=== PATIENT | female | born 1965 | race Caucasian/White ===

== ENCOUNTER 2019-03-26 10:48 | Outpatient (CLI) | payer OTHER, SELFPAY ==
[2019-03-26 11:33] LABS: Alanine Aminotransferase 30 U/L (4-35); Albumin Level 4.6 g/dL (3.5-5.1); Alkaline Phosphatase 91 U/L (38-126); Aspartate Amino Transferase 38 U/L (14-36); Bilirubin,Total 0.6 mg/dL (0.2-1.3); Blood Urea Nitrogen 12 mg/dL (7-17); Calcium 9.6 mg/dL (8.4-10.2); Carbon Dioxide 34 mmol/L (22-30); Chloride 92 mmol/L (98-107); Cholesterol 235 mg/dL (0-200); Estimated Glomerular Filt Rate > 60; Glucose 96 mg/dL (65-105); HDL Direct 74 mg/dL; Potassium 3.4 mmol/L (3.4-5.0); Sodium 135 mmol/L (137-145); Triglycerides 85 mg/dL (<150)
[2019-03-26 11:44] LABS: LDL Cholesterol Direct 151 mg/dL
== END 2019-03-26 10:49 | disposition home or self-care (01) ==
PROVIDERS: PCP Family Medicine; Visit Provider Family Medicine
DX: E03.9 Hypothyroidism, unspecified (principal); R94.6 Abnormal results of thyroid function studies; E78.5 Hyperlipidemia, unspecified
CPT/HCPCS: 36415; 80053; 80061; 84443

== ENCOUNTER 2019-05-31 16:34 | Emergency (ER) | payer OTHER, SELFPAY ==
--- NOTE | ~2019-05-31 | CT_ITS ---
EXAMINATION: CT abdomen pelvis wo con EXAM DATE: 05/31/2019 17:14 INDICATION: Left lower quadrant, left flank pain. TECHNIQUE: Spiral CT of the abdomen and pelvis was performed without contrast. Axial, coronal and sag ittal images were reviewed. The dose-length product (DLP) for this examination was 320.28 mGy-cm. T he exposure was tailored according to patient size (auto mA exposure control), and iterative reconstr uction (ASIR) was used as additional dose reduction technique. There is no prior study for compariso n. FINDINGS: There is no nephrolithiasis or hydronephrosis. The uterus is not identified and has likel y been surgically resected. The bladder is unremarkable. The liver, spleen, adrenal glands and panc reas are unremarkable. Gallbladder is unremarkable. No biliary obstruction. There is no retroperit lozano or pelvic lymphadenopathy. The appendix is normal. The stomach and small bowel are unremarkable. There is expected amount of c olonic stool. No free intraperitoneal gas. The heart is normal in size. There are no pericardial or pleural effusions. The lung bases are unremarkable. There are no osteoblastic or osteolytic les ions identified. IMPRESSION: 1. No nephrolithiasis, hydronephrosis or acute intra-abdominal findings. Reviewed, dictated and finalized at location A.
--- NOTE | ~2019-05-31 | CT_ITS ---
EXAMINATION: CT abdomen pelvis w con EXAM DATE: 05/31/2019 19:16 INDICATION: Severe left lower quadrant pain. TECHNIQUE: Spiral CT of the abdomen and pelvis was performed following intravenous injection of 100 m L Omnipaque 350. Axial, coronal and sagittal images were reviewed. The dose-length product (DLP) fo r this examination was 326.24 mGy-cm. The exposure was tailored according to patient size (auto mA e xposure control), and iterative reconstruction (ASIR) was used as additional dose reduction technique . Comparison is made to prior examination from 05/31/2019. FINDINGS: The liver, spleen, adrenal glands and pancreas are unremarkable. Gallbladder is unremarkab le. No biliary obstruction. Portal and splenic veins are patent. Kidneys enhance symmetrically. T here is no hydronephrosis. The uterus is not identified and has likely been surgically resected. T he bladder is unremarkable. There is no retroperitoneal or pelvic lymphadenopathy. There is mild s cattered arteriosclerotic disease. The appendix is normal. The stomach and small bowel are unremarkable. There is expected amount of c olonic stool. No free intraperitoneal gas. The heart is normal in size. There are no pericardial or pleural effusions. The lung bases are unremarkable. There are no osteoblastic or osteolytic les ions identified. IMPRESSION: 1. No acute intra-abdominal findings. Reviewed, dictated and finalized at location A.
--- NOTE | 2019-05-31 16:44 | ED.GENADULT ---
HPI - General Adult General Chief complaint: Abdominal Pain Stated complaint: abd pain Time Seen by Provider: 05/31/19 16:39 Source: patient Mode of arrival: ambulatory Limitations: no limitations History of Present Illness HPI narrative: Patient is a 53-year-old female with a history of anxiety and depression who presents for evaluation of left flank pain. Pain began approximately 2 hours ago while the patient was on a walk. She denies any fall, trauma or recent injury. She states that she experienced left flank pain that radiated to the front of her left lower abdomen. Described as sharp, shooting, severe in nature. Associated with nausea, no emesis. She denies any recent fever, chills, dysuria or hematuria. No history of nephrolithiasis. No ripping or tearing sensation to the pain. No chest pain, shortness of breath, recent cough or cold symptoms. Patient took 4 ibuprofen without improvement in her pain. Related Data Home Medications Medication Instructions Recorded Confirmed atorvastatin 10 mg tablet 10 mg PO DAILY 02/24/19 cetirizine 10 mg tablet 10 mg PO DAILY 02/24/19 indapamide 2.5 mg tablet 2.5 mg PO QAM tablet 02/24/19 magnesium oxide,aspartate,citr 400 mg PO cap 02/24/19 quetiapine 25 mg tablet 50 mg PO DAILY tablet 03/24/19 Allergies Allergy/AdvReac Type Severity Reaction Status Date / Time Sulfa (Sulfonamide Allergy Unknown RASH Verified 03/24/19 16:48 Antibiotics) Review of Systems Review of Systems: Narrative: CONSTITUTIONAL: Denies fever, chills, or sweats. ENT: Denies rhinorrhea, congestion, sore throat, or otalgia. CARDIOVASCULAR: Denies chest pain, palpitations, or edema. RESPIRATORY: Denies cough or dyspnea. GASTROINTESTINAL: Reports left lower quadrant abdominal pain, nausea, denies vomiting or diarrhea GENITOURINARY: Denies dysuria or hematuria. SKIN: Denies rash or itching. MUSCULOSKELETAL: Reports left flank pain, denies extremity pain NEUROLOGIC: Denies headache, numbness, or weakness. [facility] Past Medical History Medical History Essential hypertension Hypothyroidism determined by thyroid function test Migraines Mixed hyperlipidemia PTSD (post-traumatic stress disorder) Surgical History Surgical History History of bilateral breast reduction surgery History of tonsillectomy Status post hysteroscopic surgical removal of uterine septum Family History Family History Sibling Family history of blood dyscrasia Father Family history of pulmonary embolism Mother Family history of pulmonary embolism Social History Social History Smoking status: Never smoker Second hand tobacco smoke exposure: No Alcohol intake: current Substance use: never Substance use type: does not use Gender identity (if verbalized by the patient): Female Exam Narrative: Exam Narrative: GENERAL: Awake, alert, appears uncomfortable HEAD: Normocephalic, atraumatic. EYES: PERRLA and EOMI. ENT: Nares clear, no rhinorrhea or epistaxis. Mucous membranes moist. NECK: Supple. CHEST: No respiratory distress, breathing even and non labored HEART: Regular rate, sinus rhythm ABDOMEN:Non distended, right lower quadrant tenderness, mild left lower quadrant tenderness, guarding present, mild left flank tenderness EXTREMITIES: Normal range of motion. No edema. SKIN: Warm, dry, no rash. No vesicular rash or bruising. NEURO:No focal deficits. Alert and oriented x3 Course Vital Signs Vital signs: Vital Signs Temperature 36.7 C 05/31/19 17:12 Pulse Rate 72 05/31/19 17:12 Respiratory Rate 26 H 05/31/19 17:12 Blood Pressure 155/97 H 05/31/19 17:12 Pulse Oximetry 96 05/31/19 17:12 Temperature 36.7 C 05/31/19 17:12 Pulse Rate 65 05/31/19 20:06 Respiratory Rate
[2019-05-31] MEDS: SODIUM CHLORIDE 0.9% IV 1,000 ML 999 ML IV CONT (16:56)
[2019-05-31] MEDS: ONDANSETRON INJ 4 MG/2 ML VIAL IV PUSH (16:57)
[2019-05-31] MEDS: MORPHINE SULFATE 4 MG/ML INJ IV PUSH ×2 (16:57→19:02)
[2019-05-31 17:12] VITALS: BP 155/97; PULSE 72; RESP 26; TEMP 36.7; O2SAT 96
[2019-05-31 17:59] LABS: Basophils Percent Auto 0.4 % (0.2-1.2); Eosinophils Absolute Auto 0.1 K/mm3 (0-0.3); Eosinophils Percent Auto 2.2 % (0-4.4); Hematocrit 43.1 % (37.0-47.0); Hemoglobin 15.1 g/dL (12.0-15.0); Immature Granulocyte Absolute 0.04 K/mm3 (0.00-0.031); Immature Granulocyte Percent A 0.8 % (0-0.5); Lymphocytes Absolute Auto 0.77 K/mm3 (0.9-3.2); Lymphocytes Percent Auto 15.7 % (18.3-44.2); Mean Corpuscular Hemoglobin 28.8 pg (26-34); Mean Corpuscular Volume 82.3 fl (80-100); Mean Platelet Volume 9.9 fl (7.4-10.4); Monocytes Absolute Auto 0.4 K/mm3 (0.1-0.6); Monocytes Percent Auto 7.4 % (2.6-8.5); Neutrophils Absolute Auto 3.6 K/mm3 (1.3-6.7); Neutrophils Percent Auto 73.5 % (45.5-73.1); Platelet Count Result 152 k/mm3 (150-375); Red Blood Count 5.24 M/mm3 (4.2-5.4); Red Cell Distribution Width 12.2 % (11.5-14.5); White Blood Count 4.9 K/mm3 (4.5-10.0)
[2019-05-31 18:11] LABS: Potassium 3.5 mmol/L (3.4-5.0)
[2019-05-31 18:15] LABS: Albumin Level 4.6 g/dL (3.5-5.1)
[2019-05-31 18:16] LABS: Alanine Aminotransferase 24 U/L (4-35); Alkaline Phosphatase 111 U/L (38-126); Aspartate Amino Transferase 36 U/L (14-36); Bilirubin,Total 0.7 mg/dL (0.2-1.3); Blood Urea Nitrogen 14 mg/dL (7-17); Calcium 9.3 mg/dL (8.4-10.2); Carbon Dioxide 28 mmol/L (22-30); Chloride 99 mmol/L (98-107); Estimated CRCL calculation 80 ml/min; Estimated Glomerular Filt Rate > 60; Glucose 104 mg/dL (65-105); Sodium 134 mmol/L (137-145)
[2019-05-31 18:44] VITALS: BP 142/81; PULSE 64; RESP 8; O2SAT 100
[2019-05-31 19:18] LABS: Add Urine Microscopic? YES; Appearance Urine Clear (Clear); Bacteria Urine Trace /hpf; Bilirubin Urine Negative (Negative); Blood Urine Negative (Negative); Color Urine Yellow (Yellow); Glucose Urine UA Negative (Negative); Ketones Urine Trace mg/dL (Negative); Leukocyte Esterase Ur 1+ LEU/UL (Negative); Mucus Urine Rare /lpf; Nitrate Urine Negative (Negative); Protein Urine Negative (Negative); RBC Urine 0-2 /hpf (0-2); Specific Grav Ur 1.016 (1.001-1.035); Squamous Epithelial Cell Urine Rare /hpf (Few); Urobilinogen Urine Negative mg/dL (<2.0)
--- NOTE | 2019-05-31 19:21 | PC.NURSE ---
Assumed care of pt at this time. report from JOHNATHON Li
[2019-05-31 19:25] VITALS: BP 142/83; PULSE 69; RESP 12; O2SAT 95
[2019-05-31 20:06] VITALS: BP 135/73; PULSE 65; RESP 19; O2SAT 97
--- NOTE | 2019-05-31 20:07 | PC.NURSE ---
PT requesting pain medication EDP notified
[2019-05-31 20:30] VITALS: BP 125/93; PULSE 60; RESP 23; O2SAT 99
== END 2019-05-31 20:30 | disposition home or self-care (01) ==
PROVIDERS: Emergency Provider Emergency Medicine; PCP Family Medicine
DX: R10.32 Left lower quadrant pain (principal); F41.9 Anxiety disorder, unspecified; F32.9 Major depressive disorder, single episode, unspecified; I10 Essential (primary) hypertension; E03.9 Hypothyroidism, unspecified; E78.2 Mixed hyperlipidemia; F43.10 Post-traumatic stress disorder, unspecified
CPT/HCPCS: 36415; 74176; 74177; 74178; 80053; 81001; 85025; 96361; 96365; 96375; 96376; 99284; J0131; J2270; J2405; J3010; J7030; Q9967

== ENCOUNTER 2019-08-30 14:09 | Outpatient (CLI) | payer OTHER, SELFPAY ==
[2019-08-30 15:17] LABS: Thyroid Stimulating Hormone 0.841 uIU/mL (0.465-4.680)
[2019-08-30 15:59] LABS: Free T4 Free Thyroxine 1.07 ng/mL (0.78-2.19)
[2019-09-03 14:05] LABS: Triiodothyronine T3 Free 3.3 pg/mL (2.3-4.2)
== END 2019-08-30 14:10 | disposition home or self-care (01) ==
PROVIDERS: PCP Family Medicine; Visit Provider Family Medicine
DX: E03.9 Hypothyroidism, unspecified (principal); R94.6 Abnormal results of thyroid function studies
CPT/HCPCS: 36415; 84439; 84443; 84481

== ENCOUNTER → 2019-10-03 14:18 | Outpatient (CLI) | payer OTHER, SELFPAY ==
--- NOTE | ~2019-10-03 | US_ITS ---
US breast RT limited DATE: 10/03/2019 14:29 INDICATION: Six-month follow-up of probably benign mixed cystic and solid subcutaneous approximately 5 x 7.4 mm mass at 6:00 TECHNIQUE: Targeted real-time and color flow imaging at 6:00 4 cm from nipple COMPARISON: 03/01/2019 right breast ultrasound targeted examination FINDINGS: Stable up to approximately 7.3 mm parallel circumscribed mass at 6 5 4 cm from nipple. Ther e is no significant change since 03/01/2019 no internal vascularity. IMPRESSION: BI-RADS Category 2: Benign Recommendation: Routine mammographic screening Reviewed, dictated and finalized at Location A. Reviewed, dictated and finalized at location A.
== END ==
PROVIDERS: PCP Family Medicine; Visit Provider Family Medicine
DX: R92.8 Other abnormal and inconclusive findings on diagnostic imaging of breast (principal)
CPT/HCPCS: 76642

== ENCOUNTER 2020-05-22 12:47 | Outpatient (CLI) | payer OTHER, SELFPAY ==
[2020-05-22 14:25] LABS: Free T4 Free Thyroxine 0.86 ng/mL (0.78-2.19)
[2020-05-25 12:51] LABS: Triiodothyronine T3 Free 3.1 pg/mL (2.3-4.2)
== END 2020-05-22 12:48 | disposition home or self-care (01) ==
LOC: ANHASCLAB 12:50 → ANHLAB 12:51
PROVIDERS: PCP Physician Assistant; Visit Provider Physician Assistant
DX: E03.9 Hypothyroidism, unspecified (principal); R94.6 Abnormal results of thyroid function studies
CPT/HCPCS: 36415; 84439; 84443; 84481

== ENCOUNTER 2020-05-24 10:58 | Outpatient (CLI) | payer OTHER, SELFPAY | END 2020-05-24 10:59 | disposition home or self-care (01) | LOC: ANHCOVIDVC 10:58 | PROVIDERS: PCP Physician Assistant | DX: Z23 Encounter for immunization (principal) | CPT/HCPCS: 0001A; 91300 ==

== ENCOUNTER → 2020-05-29 16:10 | Outpatient (CLI) | payer OTHER, SELFPAY ==
--- NOTE | ~2020-05-29 | MM_ITS ---
EXAMINATION: MM screening [facility] BI w олег HISTORY: Screening TECHNIQUE: Craniocaudal and mediolateral oblique 3-D tomosynthesis images were obtained and synthetic 2-D images were generated. CAD analysis was submitted and interpreted. COMPARISON: Comparison to multiple prior studies sequentially, with oldest reviewed study dated 01/16. BREAST PARENCHYMAL COMPOSITION: There are scattered areas of fibroglandular density. FINDINGS: There are changes from prior breast reduction surgery. There is tissue marker in the right breast consistent with previous benign biopsy. There is no evidence of suspicious mass, calcification , or architectural distortion to suggest malignancy in either breast. There has been no suspicious in terval change. IMPRESSION: 1. No mammographic evidence of malignancy. 2. Recommend routine screening mammography in one year. BI-RADS Category 2: Benign finding(s). Reviewed, dictated and finalized at location A.
== END ==
PROVIDERS: Visit Provider Obstetrics & Gynecology
DX: Z12.31 Encounter for screening mammogram for malignant neoplasm of breast (principal)
CPT/HCPCS: 77063; 77067

== ENCOUNTER 2020-06-14 11:01 | Outpatient (CLI) | payer OTHER, SELFPAY | END 2020-06-14 11:02 | disposition home or self-care (01) | LOC: ANHCOVIDVC 11:02 | PROVIDERS: PCP Physician Assistant | DX: Z23 Encounter for immunization (principal) | CPT/HCPCS: 0002A; 91300 ==

== ENCOUNTER 2020-08-23 10:40 | Outpatient (CLI) | payer OTHER, SELFPAY ==
[2020-08-23 11:32] LABS: Alanine Aminotransferase 27 U/L (4-35); Albumin Level 4.8 g/dL (3.5-5.1); Alkaline Phosphatase 80 U/L (38-126); Anion Gap 12 mmol/L (8-16); Aspartate Amino Transferase 31 U/L (14-36); Blood Urea Nitrogen 13 mg/dL (7-17); Calcium 10.4 mg/dL (8.4-10.2); Carbon Dioxide 24 mmol/L (22-30); Chloride 103 mmol/L (98-107); Cholesterol 214 mg/dL (0-200); Estimated Glomerular Filt Rate > 60; Glucose 103 mg/dL (65-105); HDL Direct 48 mg/dL; Potassium 3.7 mmol/L (3.4-5.0); Sodium 139 mmol/L (137-145); Triglycerides 95 mg/dL (<150)
[2020-08-23 11:43] LABS: LDL Cholesterol Direct 115 mg/dL
[2020-08-23 12:02] LABS: Thyroid Stimulating Hormone 0.227 uIU/mL (0.465-4.680)
== END 2020-08-23 10:41 | disposition home or self-care (01) ==
LOC: ANHLAB 10:43
PROVIDERS: PCP Family Medicine; Visit Provider Physician Assistant
DX: E03.9 Hypothyroidism, unspecified (principal); E78.5 Hyperlipidemia, unspecified; I10 Essential (primary) hypertension
CPT/HCPCS: 36415; 80053; 80061; 84439; 84443

== ENCOUNTER 2020-11-23 15:22 | Outpatient (CLI) | payer OTHER, SELFPAY ==
--- NOTE | ~2020-11-23 | US_ITS ---
EXAMINATION: US pelvic complete w TV DATE: 11/23/2020 15:57 INDICATION: Left pelvic pain. TECHNIQUE: Multiple transabdominal and transvaginal sonographic images of the pelvis were obtained. COMPARISON: CT abdomen and pelvis 05/31/2019 FINDINGS: TRANSABDOMINAL ULTRASOUND: The uterus is absent. There is no free fluid in the pelvis. TRANSVAGINAL ULTRASOUND: The right ovary is not visualized. The left ovary measures 1.7 x 0.9 x 1.0 cm. There is normal vascul ar flow in left ovary. IMPRESSION: 1. Normal left ovary. Right ovary not visualized. 2. Uterus absent. Reviewed, dictated and finalized at location A.
== END 2020-11-23 15:23 | disposition home or self-care (01) ==
LOC: ANHIMG 15:26
PROVIDERS: PCP Family Medicine; Visit Provider Obstetrics & Gynecology
DX: R10.2 Pelvic and perineal pain (principal)
CPT/HCPCS: 76830; 76856

== ENCOUNTER 2020-12-18 12:11 | Outpatient (CLI) | payer OTHER, SELFPAY ==
[2020-12-18 13:30] LABS: Free T4 Free Thyroxine 1.26 ng/mL (0.78-2.19)
== END 2020-12-18 12:12 | disposition home or self-care (01) ==
LOC: ANHLAB 12:15
PROVIDERS: PCP Family Medicine; Visit Provider Physician Assistant
DX: E03.9 Hypothyroidism, unspecified (principal)
CPT/HCPCS: 36415; 84439; 84443

== ENCOUNTER 2021-02-28 10:28 | Outpatient (CLI) | payer OTHER, SELFPAY ==
[2021-02-28 11:09] LABS: Alanine Aminotransferase 31 U/L (4-35); Albumin Level 4.8 g/dL (3.5-5.1); Alkaline Phosphatase 87 U/L (38-126); Anion Gap 8 mmol/L (8-16); Aspartate Amino Transferase 35 U/L (14-36); Bilirubin,Total 0.9 mg/dL (0.2-1.3); Blood Urea Nitrogen 14 mg/dL (7-17); Calcium 9.9 mg/dL (8.4-10.2); Carbon Dioxide 28 mmol/L (22-30); Chloride 101 mmol/L (98-107); Cholesterol 231 mg/dL (0-200); Estimated Glomerular Filt Rate > 60; Glucose 109 mg/dL (65-110); HDL Direct 62 mg/dL; Potassium 3.6 mmol/L (3.4-5.0); Sodium 137 mmol/L (137-145); Triglycerides 80 mg/dL (<150)
[2021-02-28 11:12] LABS: Hematocrit 44.1 % (37.0-47.0); Hemoglobin 15.5 g/dL (12.0-15.0); Mean Corpuscular HGB Conc 35.1 g/dl (32-36); Mean Corpuscular Volume 82.4 fl (80-100); Mean Platelet Volume 10.5 fl (7.4-10.4); Platelet Count Result 180 k/mm3 (150-375); Red Blood Count 5.35 M/mm3 (4.2-5.4); Red Cell Distribution Width 12.1 % (11.5-14.5); White Blood Count 4.8 K/mm3 (4.5-10.0)
[2021-02-28 11:20] LABS: LDL Cholesterol Direct 137 mg/dL
[2021-02-28 11:39] LABS: Thyroid Stimulating Hormone 0.902 uIU/mL (0.465-4.680)
[2021-02-28 11:57] LABS: Free T4 Free Thyroxine 1.33 ng/mL (0.78-2.19)
== END 2021-02-28 10:29 | disposition home or self-care (01) ==
LOC: ANHLAB 10:32
PROVIDERS: PCP Family Medicine; Visit Provider Physician Assistant
DX: R53.83 Other fatigue (principal); E78.5 Hyperlipidemia, unspecified; I10 Essential (primary) hypertension; E03.9 Hypothyroidism, unspecified
CPT/HCPCS: 36415; 80053; 80061; 84439; 84443; 85027

== ENCOUNTER 2021-05-28 12:56 | Outpatient (CLI) | payer OTHER, SELFPAY ==
--- NOTE | 2021-05-28 13:15 | ECG_ITS ---
Measurements Intervals [place] Rate: 63 P: 73 CO: 161 QRS: 70 QRSD: 93 T: 64 QT: 418 QTc: 429 Interpretive Statements SINUS RHYTHM NONSPECIFIC T-WAVE ABNORMALITY ABNORMAL ECG COMPARED TO ECG 06/24/2018 19:46:27 NO SIGNIFICANT CHANGES Electronically Signed On 05-28-2021 18:07:33 CDT by Mian Mejia M.D.
[2021-05-28 14:05] LABS: Anion Gap 6 mmol/L (8-16); Blood Urea Nitrogen 11 mg/dL (7-17); Calcium 9.4 mg/dL (8.4-10.2); Carbon Dioxide 32 mmol/L (22-30); Chloride 100 mmol/L (98-107); Estimated Glomerular Filt Rate > 60; Glucose 87 mg/dL (65-110); Potassium 3.5 mmol/L (3.4-5.0); Sodium 138 mmol/L (137-145)
== END 2021-05-28 12:57 | disposition home or self-care (01) ==
LOC: ANHSURGERY 13:04
PROVIDERS: Anesthesiology; PCP Family Medicine; Visit Provider Podiatrist Foot & Ankle Surgery
DX: Z01.818 Encounter for other preprocedural examination (principal); Z51.81 Encounter for therapeutic drug level monitoring; Z79.899 Other long term (current) drug therapy; I10 Essential (primary) hypertension
CPT/HCPCS: 36415; 80048; 93005

== ENCOUNTER 2021-05-31 00:50 | Day surgery (SDC) | payer OTHER, SELFPAY ==
[2021-05-27 12:46] VITALS: BMI 23.4
--- NOTE | 2021-05-27 12:59 | PC.NURSE ---
Report to the Outpatient Waiting Room, entrance under the green pavilion located off [facility], at time 9:00 on date 05/31/21. OR Time: 11:00. - You and your visitor will be asked a series of questions to screen for COVID 19 for your protection. - A mask is required within the hospital. One visitor will be allowed to accompany the patient into the hospital. Patients visitor will be instructed to remain with patient at all times or leave the building. We will allow the visitor to come back to the postoperative area when patient is ready. Preoperative COVID Testing Requirements: No COVID Test needed if: (proof is required; if not received patient will have Rapid Test prior to entry) - Patient has received COVID Vaccine at least 14 days prior to procedure date or - Patient has positive COVID test result within last 90 days of surgery date. COVID Test needed if above criteria is not met Patients may have clear liquids (water, carbonated beverages, clear teas, apple juice) until 3 hours prior to surgery (8:00) with a maximum of 20 ounces. - No food from midnight until time of surgery Take the following medications with a SIP of water the morning of surgery: LEVOTHYROXINE Medications to discontinue per physician: N/A Date to take last dose: N/A Please no make-up, nail serbian, hairspray, perfume, deodorant, or body powder the day of surgery. No jewelry (including any body piercings) or valuables the day of surgery, leave them at home. Please take a shower or bath the night before, or the morning of, surgery with an antibacterial soap. Wear comfortable, loose fitting clothing. - Jewelry must be removed prior to entering the operating room. Rings and piercings that are not removed may be cut off. - The hospital will not accept responsibility for valuables. - Please leave all valuables, including medications, at home the day of surgery. If you are going home after surgery, a licensed solo truck driver must drive you home. - NO public transportation without another adult. - We recommend that an adult stay with you for 24 hours following discharge. - We also recommend that you do not drive, make important decision, drink alcoholic beverages, or take any drugs that were not prescribed by your health care provider for at least 24 hours after your discharge time. Follow any additional instructions given to you from your surgeon. Telephone instructions given to IBETH PHELAN and asked if any additional questions and then verbalized understanding. Patient advised to call surgeon office or pre surgery nurse liaison [phone] if any additional questions.
[2021-05-31] VITALS (8 sets, daily range): BP systolic 93–140; BP diastolic 57–86; PULSE 58–73; RESP 13–16; TEMP 36.2–36.4; O2SAT 95–100
--- NOTE | ~2021-05-31 | XR_ITS ---
EXAMINATION: XR surgery orthopedic EXAM DATE: 05/31/2021 12:26 INDICATION: Rt Foot Alan Lapidus Bunionectomy, Osteotomy Right Hallux TECHNIQUE: Fluoroscopy used during foot surgery performed by Dr. Diego Mercado JR MD. Radiologi st was not present for the imaging or procedure. Total fluoroscopic time of 32 seconds The DAP for this procedure was 3.7 cGycm2. A total of 4 images sent to PACS from the exam. There is no prior s tudy for comparison. FINDINGS: There are no side markers on the images. Physician Practice Consultant image demonstrates bunion, hallux valgus. S ubsequent image demonstrates surgical defect, 1st metatarsophalangeal joint hardware. Correlate with procedure note. IMPRESSION: Fluoroscopy used during corrective foot surgery. Reviewed, dictated and finalized at location B.
--- NOTE | 2021-05-31 07:16 | WPDHPUPDATE1 ---
History and Physical Update Update Date/Time: 05/31/21 07:16 History and Physical has been reviewed, including an updated exam of the patient. There are NO changes in the patient's condition. Risks, benefits, and alternatives have been discussed and questions answered. Patient agrees to proceed with procedure.
--- NOTE | 2021-05-31 07:23 | WPDANESEPPF ---
Anes - Initial Pre Proc Eval Procedure: Operation Date: 05/31/21 11:00 Proposed Procedures p Lapidus Bunionectomy Right Foot, Alan Phalangeal Osteotomy Right Hallux - Diego Mercado JR, MD Date/Time: 05/31/21 07:23 Surgeon: Diego Mercado JR, MD Pre Op Diagnosis: Painful Bunion Rt Foot Patient Data Age: 55 Gender: F Height: 1.73 m Weight: 69.85 kg Allergies Allergy/AdvReac Type Severity Reaction Status Date / Time epinephrine Allergy Severe Agitated Verified 05/31/21 09:28 midazolam [From Versed] Allergy Severe Agitated Verified 05/31/21 09:28 Sulfa (Sulfonamide Allergy Intermediate RASH Verified 05/31/21 09:28 Antibiotics) Benzodiazepines AdvReac Severe agitation, Verified 05/27/21 12:42 insomnia Home Medications Medication Instructions Recorded Confirmed Type cetirizine 10 mg tablet 10 mg PO DAILY 02/24/19 05/31/21 History indapamide 2.5 mg tablet See Rx Instructions .ROUTE 08/23/20 05/31/21 Rx .COMPLEX #90 tablet levothyroxine 100 mcg tablet 100 mcg PO .every other day #15 08/24/20 05/31/21 Rx tablet naratriptan 2.5 mg tablet 2.5 mg PO Q4H PRN #30 tablet 09/12/20 05/31/21 Rx potassium chloride 20 mEq 20 meq PO BID #180 tablet 01/21/21 05/27/21 Rx tablet,extended release atorvastatin 10 mg tablet 10 mg PO DAILY #90 tablet 02/06/21 05/31/21 Rx hydrocortisone 1 % topical cream 1 applic TOPICAL QID PRN #28.4 g 02/27/21 05/31/21 Rx quetiapine 25 mg tablet 12.5 mg PO HS tablet 02/27/21 05/27/21 History levothyroxine 88 mcg tablet 88 mcg PO .every other day #15 03/13/21 05/31/21 Rx tablet lemborexant [Dayvigo] 10 mg PO HS 05/27/21 05/31/21 History Vitamin C 1,000 mg PO DAILY 05/31/21 05/31/21 History omega-3 fatty acids [Fish Oil] 500 mg PO DAILY 05/31/21 05/31/21 History Patient hx anesthesia problems: post op nausea/vomiting Family hx anesthesia problems: none Results Review: All pre-operative results and documents have been reviewed as part of the pre-operative evaluation. [facility] Past Medical History Medical History (Updated 05/31/21 @ 07:23 by Newton Leon DO) Depression Diuretic-induced hypokalemia Essential hypertension Hypothyroidism determined by thyroid function test Migraines Mixed hyperlipidemia PONV (postoperative nausea and vomiting) PTSD (post-traumatic stress disorder) Surgical History Surgical History (Updated 05/31/21 @ 07:23 by Newton Leon DO) History of bilateral breast reduction surgery History of hysterectomy History of tonsillectomy Status post hysteroscopic surgical removal of uterine septum Family History Family History (Updated 02/27/21 @ 14:02 by Chacha Baxter CMA) Sibling Family history of blood dyscrasia Father Family history of pulmonary embolism Mother Family history of pulmonary embolism Social History Social History (Updated 02/27/21 @ 14:03 by Chacha Baxter CMA) Years smoked: 1.5 Smoking status: Former smoker Tobacco type: cigarettes Second hand tobacco smoke exposure: No Smoking end date: 02/16/21 Alcohol intake: current Drinks per week: 3 Alcohol use details: socially Substance use: current Substance use type: marijuana Other substance usage details: EDIBLES Last use: 08/22/2020 Living arrangements: with family Gender identity (if verbalized by the patient): Female Spiritual care concerns: No Anes - Eval Final PreProcedure Day of Procedure 05/31/21 07:23 Patient weight: normal Heart: regular rate and rhythm Lungs: clear to auscultation and normal air movement Airway: Mallampati scale class II Neurological: alert and oriented Last oral intake: >/= 8 hours ASA classification: II Emergent: no Anesthetic plan: proceed Anesthesia type and monitoring: general LMA and standard monitoring Results Review: All pre-operative results and documents have been reviewed as part of the pre-operative evaluation. Informed Consent: The patient's anesthetic
--- NOTE | 2021-05-31 07:24 | WPDANESPNB ---
Anes - Peripheral Nerve Block Date/Time: 05/31/21 07:24 I have discussed with the patient/family/POA the placement of a peripheral nerve block for post-operative pain management, including associated risks, benefits, complications, and side effects. Alternative methods of post-operative analgesia were detailed. Questions were solicited and answers provided to the satisfaction of the patient/family/POA. Time-Out: A pre-procedural Time-Out was completed immediately before starting the procedure and confirmed: Patient Identification, Site, Procedure, Patient Position and the Availability of Requisite Equipment. Clinical Indications: Acute post-operative pain management requested by the operative surgeon. Nerve Block Insertion Note Anes-nerve block: posterior fossa sciatic left and adductor canal right Patient position: supine (for adductor canal) and other (right lateral for popliteal) Skin prep: chlorhexidine Needle: 22 gauge, stimulating, insulated echogenic needle. Needle length: 80 mm Technique: nerve stimulation lost at (mA) (for popliteal lost at 0.2) and ultrasound Injectate: bupivacaine 0.5% with epi 5 mcg/ml (20 mL for popliteal, 10 mL for adductor canal (no epi)) Observations: tolerated well Complications: none Procedure start time:: 1058 Procedure end time:: 110
[2021-05-31] MEDS: LACTATED RINGERS 1,000 ML 30 ML IV CONT ×2 (09:44→12:52)
[2021-05-31] MEDS: SCOPOLAMINE 1.5 MG PATCH TRANSDERM (10:37)
[2021-05-31] MEDS: ceFAZolin 2 GM/D5W 50 ML 2 GM/50 ML BAG IVPB (11:07)
--- NOTE | 2021-05-31 13:19 | W.PM.PROC2 ---
Procedure Note - Detailed Date of Procedure 05/31/21 Pre-op Diagnosis Painful Bunion Right Foot Post-op Diagnosis Same Procedure Performed 1. Lapidus bunionectomy right foot 2. Alan phalangeal osteotomy right hallux Surgeon Diego Mercado JR, DONNAM Anesthesia General and Regional Indications Painful right forefoot Description of Procedure Under mild sedation, the patient was brought to the operating room, placed on the operating table in the supine position. A pneumatic ankle tourniquet was placed about the patient's ankle. Following general anesthesia and a previous popliteal fossa block, the foot was then scrubbed, prepped, and draped in the usual aseptic manner. An Esmarch bandage was then used to examine the patient's foot and pneumatic ankle tourniquet was then inflated. Surgery began in the following manner. Attention was directed to the dorsal aspect of the 1st metatarsocuneiform of the foot where fluoroscopy was used to identify the joint. A 3 cm incision was made overlying the dorsal aspect of the 1st metatarsocuneiform joint of the foot just medial to the extensor hallucis longus tendon. The incision was then continued deep down through the subcutaneous tissues using sharp and blunt dissection. All bleeders were ligated and cauterized as necessary. At this point, the extensor tendon was identified and reflected laterally. Next, the periosteum and capsular incision was made at the full length of the skin incision exposing the medial cuneiform as well as the base of the 1st metatarsal. Next, a sagittal bone saw was introduced from dorsal to plantar across the 1st metatarsocuneiform joint in order to free up any ankylosed portions of the joint and also to release any adhesions. Two Steinmann Pins were driven from dorsal to plantar 1cm proximal and distal to the 1st metatarsal cuneiform joint. The provided curved osteotome and curette was used to resect the cartilage and subchondral bone and a 2.0mm drill bit was used to fenestrate the joint to promote fusion. At this point, a small 2 cm incision was made along the lateral aspect of the 1st metatarsophalangeal joint of the right foot and a lateral release consisting of a lateral capsule incision as well as release of the adductor hallucis tendon with the tenotomy as well as releasing the distal aspect and lateral aspect and proximal aspect of the fibular sesamoid. After this, a lateral release was performed. The hallux was noted to be released as far as its lateral contracture as far as the track-bound hallux. A 1cm incision was made medial to the first metatarsal head exten A 1.4mm Steinmann pin was driven from medial to lateral across the 1st metatarsal head. Next, the Lapifuse positioner was used to obtain 3 plane correction of the hallux abductovalgus deformity. Fluoroscopy was used to make sure that the 1st MPJ was congruous and the sesamoid apparatus was centered under the first metatarsal. Next a 4mm cannulated screw was driven from the medial base of the 1st metatarsal to the central and lateral cuneiform bone. Excellent compression was noted, next a Lapifuse plate was placed dorsal medially along the 1st metatarsal cuneiform joint and 4 locking and one eccentrically drilled non locking screws was used to further compress the joint to ensure arthrodesis. At this point the positioner was removed and fluoroscopy was used to make sure that deformity correction was maintained. Fluoroscopy confirmed that the hallux was noted to be in a rectus position. The periosteum and capsular structures were reapproximated and coapted utilizing horizontal mattress as well as simple interrupted suture fashion technique along the 1st metatarsophalangeal joint and then 3-0 PDS was then used to reapproximate the capsular structures over the 1st metatarsocuneiform joint of the foot. Next, the subcutaneous structures were reapproximated and coapted utilizing 4-0 Vicryl. Next, the sk
[2021-05-31] MEDS: ONDANSETRON INJ 4 MG/2 ML VIAL IV PUSH (13:56)
== END 2021-05-31 14:50 | disposition home or self-care (01) ==
PROVIDERS: PCP Family Medicine; Visit Provider Podiatrist Foot & Ankle Surgery
PROC: (CPT 28299; principal; 2021-05-31 11:00)
DX: M21.611 Bunion of right foot (principal); E03.9 Hypothyroidism, unspecified; E78.00 Pure hypercholesterolemia, unspecified; M54.9 Dorsalgia, unspecified; F12.90 Cannabis use, unspecified, uncomplicated; G89.18 Other acute postprocedural pain; F32.9 Major depressive disorder, single episode, unspecified; I10 Essential (primary) hypertension; E78.2 Mixed hyperlipidemia; F43.10 Post-traumatic stress disorder, unspecified; E87.6 Hypokalemia; Z87.891 Personal history of nicotine dependence
CPT/HCPCS: 28298; 64445; 64447; A9270; C1713; J0690; J1100; J2405; J2704; J3010; J7120

== ENCOUNTER → 2021-07-05 13:16 | Outpatient (CLI) | payer OTHER, SELFPAY ==
--- NOTE | ~2021-07-05 | MM_ITS ---
EXAMINATION: MM screening [facility] BI w олег HISTORY: Screening mammogram TECHNIQUE: Craniocaudal and mediolateral oblique 3-D tomosynthesis images were obtained and synthetic 2-D images were generated. CAD analysis was submitted and interpreted. COMPARISON: 05/29/2020, 10/03/2019, 03/01/2019, 10/29/2018 BREAST PARENCHYMAL COMPOSITION: There are scattered areas of fibroglandular density. FINDINGS: Changes of reduction mammoplasty are noted. There is stable low-density mass middle third o f the central right breast. There is no suspicious mass, calcification, or architectural distortion t o suggest malignancy in either breast. There has been no suspicious interval change. IMPRESSION: 1. No mammographic evidence of malignancy. 2. Recommend routine screening mammography in one year. BI-RADS Category 2: Benign finding(s). Reviewed, dictated and finalized at location A.
== END ==
PROVIDERS: PCP Family Medicine; Visit Provider Family Medicine
DX: Z12.31 Encounter for screening mammogram for malignant neoplasm of breast (principal)
CPT/HCPCS: 77063; 77067

== ENCOUNTER 2021-08-29 11:10 | Outpatient (CLI) | payer OTHER, SELFPAY ==
[2021-08-29 12:04] LABS: Alanine Aminotransferase 31 U/L (6-35); Albumin Level 4.6 g/dL (3.5-5.1); Alkaline Phosphatase 91 U/L (38-126); Anion Gap 7 mmol/L (8-16); Aspartate Amino Transferase 32 U/L (14-36); Bilirubin,Total 0.8 mg/dL (0.2-1.3); Blood Urea Nitrogen 13 mg/dL (7-17); Calcium 9.4 mg/dL (8.4-10.2); Carbon Dioxide 32 mmol/L (22-30); Chloride 100 mmol/L (98-107); Cholesterol 280 mg/dL (0-200); Estimated Glomerular Filt Rate > 60; Glucose 89 mg/dL (65-110); HDL Direct 63 mg/dL; Potassium 3.5 mmol/L (3.4-5.0); Sodium 139 mmol/L (137-145); Triglycerides 129 mg/dL (<150)
[2021-08-29 12:15] LABS: LDL Cholesterol Direct 171 mg/dL
[2021-08-29 18:32] LABS: Free T4 Free Thyroxine 1.15 ng/mL (0.78-2.19)
== END 2021-08-29 11:11 | disposition home or self-care (01) ==
LOC: ANHLAB 11:13
PROVIDERS: PCP Family Medicine; Visit Provider Physician Assistant
DX: E03.9 Hypothyroidism, unspecified (principal); R94.6 Abnormal results of thyroid function studies; I10 Essential (primary) hypertension; Z13.1 Encounter for screening for diabetes mellitus; Z13.220 Encounter for screening for lipoid disorders
CPT/HCPCS: 36415; 80053; 80061; 84439; 84443

== ENCOUNTER 2022-02-27 10:42 | Outpatient (CLI) | payer OTHER, SELFPAY ==
[2022-02-27 11:19] LABS: Alanine Aminotransferase 26 U/L (6-35); Albumin Level 4.9 g/dL (3.5-5.1); Alkaline Phosphatase 87 U/L (38-126); Anion Gap 8 mmol/L (8-16); Aspartate Amino Transferase 30 U/L (14-36); Blood Urea Nitrogen 17 mg/dL (7-17); Calcium 9.8 mg/dL (8.4-10.2); Carbon Dioxide 32 mmol/L (22-30); Chloride 97 mmol/L (98-107); Cholesterol 226 mg/dL (0-200); Estimated Glomerular Filt Rate > 60; Glucose 113 mg/dL (65-110); HDL Direct 61 mg/dL; Potassium 3.3 mmol/L (3.4-5.0); Sodium 137 mmol/L (137-145); Triglycerides 77 mg/dL (<150)
[2022-02-27 11:33] LABS: LDL Cholesterol Direct 114 mg/dL
[2022-02-27 12:04] LABS: Free T4 Free Thyroxine 1.61 ng/mL (0.78-2.19)
== END 2022-02-27 10:43 | disposition home or self-care (01) ==
PROVIDERS: PCP Family Medicine; Visit Provider Physician Assistant
DX: R53.83 Other fatigue (principal); Z13.1 Encounter for screening for diabetes mellitus; Z13.220 Encounter for screening for lipoid disorders
CPT/HCPCS: 36415; 80053; 80061; 84439; 84443

== ENCOUNTER 2022-05-02 00:30 | Day surgery (SDC) | payer OTHER, SELFPAY ==
[2022-04-23 13:24] VITALS: BMI 23.2
[2022-05-02 08:15] VITALS: BP 130/83; PULSE 67; RESP 18; TEMP 36.1; O2SAT 96
--- NOTE | 2022-05-02 08:23 | WPDANESEPPF ---
Anes - Initial Pre Proc Eval Procedure: Operation Date: 05/02/22 09:30 Proposed Procedures p Screening Colonoscopy - Wagner Brandon MD Date/Time: 05/02/22 08:23 Surgeon: Wagner Brandon MD Pre Op Diagnosis: neoplasm screening Patient Data Age: 56 Gender: F Height: 1.73 m Weight: 68.9 kg Last Vital Signs Temp 36.1 C L 05/02/22 08:15 Pulse 67 05/02/22 08:15 Resp 18 05/02/22 08:15 BP 130/83 05/02/22 08:15 Pulse Ox 96 05/02/22 08:15 O2 Del Method Room Air 05/02/22 08:15 Allergies Allergy/AdvReac Type Severity Reaction Status Date / Time epinephrine Allergy Severe Agitated Verified 05/02/22 08:14 midazolam [From Versed] Allergy Severe Agitated Verified 05/02/22 08:14 Sulfa (Sulfonamide Allergy Intermediate RASH Verified 05/02/22 08:14 Antibiotics) Benzodiazepines AdvReac Severe agitation, Verified 05/02/22 08:14 insomnia Home Medications Medication Instructions Recorded Confirmed Type cetirizine 10 mg tablet (Zyrtec) 10 mg PO DAILY 02/24/19 04/23/22 History naratriptan 2.5 mg tablet 2.5 mg PO Q4H PRN migraine 09/12/20 04/23/22 Rx headache #30 tabs quetiapine 25 mg tablet 12.5 mg PO HS 02/27/21 04/23/22 History lemborexant 10 mg tablet (Dayvigo) 10 mg PO HS PRN Sleep 05/27/21 04/23/22 History Vitamin C 1,000 mg PO DAILY 05/31/21 02/26/22 History sodium sul 1.479 gram-potas ch See Rx Instructions PO PER PKG DIR 06/26/21 04/23/22 Rx 0.188 gram-magnes sul 0.225 gram #24 tabs tablet (Sutab) atorvastatin 20 mg tablet 20 mg PO DAILY #90 tabs 11/11/21 04/23/22 Rx levothyroxine 88 mcg tablet See Rx Instructions .Route 03/13/22 04/23/22 Rx .COMPLEX #45 tabs potassium chloride 20 mEq 20 meq PO BID #180 tabs 03/24/22 04/23/22 Rx tablet,extended release indapamide 2.5 mg tablet 2.5 mg PO DAILY #90 tabs 04/06/22 04/23/22 Rx Patient hx anesthesia problems: none Family hx anesthesia problems: none Results Review: All pre-operative results and documents have been reviewed as part of the pre-operative evaluation. [facility] Past Medical History Medical History Depression Diuretic-induced hypokalemia Essential hypertension Hypothyroidism determined by thyroid function test Migraines Mixed hyperlipidemia PONV (postoperative nausea and vomiting) PTSD (post-traumatic stress disorder) Surgical History Surgical History History of bilateral breast reduction surgery History of bunionectomy of right great toe History of hysterectomy History of tonsillectomy Status post hysteroscopic surgical removal of uterine septum Family History Family History Sibling Family history of blood dyscrasia Father Family history of pulmonary embolism Mother Family history of pulmonary embolism Social History Social History Years smoked: 2 Smoking status: Former smoker Tobacco type: cigarettes Second hand tobacco smoke exposure: No Smoking end date: 02/16/21 Alcohol intake: current Drinks per week: 4 Alcohol use details: socially Substance use: never Substance use type: marijuana Other substance usage details: CBD for relaxation Last use: 08/22/2020 Lack of Transportation: No Lack of Food: Never True Current Housing: I Have Housing Concerned About Future Housing: Decline to Answer Difficulty Paying Gas/Electric Bills: No Difficulty Paying for Meds: No Currently Unemployed: No Education: Master's Degree or Higher Difficulty w/ Childcare or Family Care: No Living arrangements: with family Occupation/Education: occupation Gender identity (if verbalized by the patient): Female Sexual Orientation (if Verbalized by the Patient): Straight or Heterosexual Spiritual care concerns: No Agree to blood products: Yes Anes -
[2022-05-02] MEDS: LACTATED RINGERS 1,000 ML 150 ML IV CONT (08:33)
--- NOTE | 2022-05-02 08:59 | PM.HPGS ---
History of Present Illness History of Present Illness Consent: Risks, benefits, and alternatives have been discussed and questions answered. Patient agrees to proceed with procedure. Chief complaint: neoplasm screening Narrative: Carol Romero is a 56 year old female Presents for screening colonoscopy. Patient's family history is significant that her father has had colon polyps. Patient reports that her current weight appetite and bowel movements are normal. Patient denies abdominal pain. She has had no bleeding. She presents today for screening colonoscopy. Review of Systems Review of Systems: Review of systems noncontributory. [facility] Past Medical History Medical History Depression Diuretic-induced hypokalemia Essential hypertension Hypothyroidism determined by thyroid function test Migraines Mixed hyperlipidemia PONV (postoperative nausea and vomiting) PTSD (post-traumatic stress disorder) Surgical History Surgical History History of bilateral breast reduction surgery History of bunionectomy of right great toe History of hysterectomy History of tonsillectomy Status post hysteroscopic surgical removal of uterine septum Family History Family History Sibling Family history of blood dyscrasia Father Family history of pulmonary embolism Mother Family history of pulmonary embolism Social History Social History Years smoked: 2 Smoking status: Former smoker Tobacco type: cigarettes Second hand tobacco smoke exposure: No Smoking end date: 02/16/21 Alcohol intake: current Drinks per week: 4 Alcohol use details: socially Substance use: never Substance use type: marijuana Other substance usage details: CBD for relaxation Last use: 08/22/2020 Lack of Transportation: No Lack of Food: Never True Current Housing: I Have Housing Concerned About Future Housing: Decline to Answer Difficulty Paying Gas/Electric Bills: No Difficulty Paying for Meds: No Currently Unemployed: No Education: Master's Degree or Higher Difficulty w/ Childcare or Family Care: No Living arrangements: with family Occupation/Education: occupation Gender identity (if verbalized by the patient): Female Sexual Orientation (if Verbalized by the Patient): Straight or Heterosexual Spiritual care concerns: No Agree to blood products: Yes Meds Home Medications and Allergies Home Medications Medication Instructions Recorded Confirmed Type cetirizine 10 mg tablet (Zyrtec) 10 mg PO DAILY 02/24/19 04/23/22 History naratriptan 2.5 mg tablet 2.5 mg PO Q4H PRN migraine 09/12/20 04/23/22 Rx headache #30 tabs quetiapine 25 mg tablet 12.5 mg PO HS 02/27/21 04/23/22 History lemborexant 10 mg tablet (Dayvigo) 10 mg PO HS PRN Sleep 05/27/21 04/23/22 History Vitamin C 1,000 mg PO DAILY 05/31/21 02/26/22 History sodium sul 1.479 gram-potas ch See Rx Instructions PO PER PKG DIR 06/26/21 04/23/22 Rx 0.188 gram-magnes sul 0.225 gram #24 tabs tablet (Sutab) atorvastatin 20 mg tablet 20 mg PO DAILY #90 tabs 11/11/21 04/23/22 Rx levothyroxine 88 mcg tablet See Rx Instructions .Route 03/13/22 04/23/22 Rx .COMPLEX #45 tabs potassium chloride 20 mEq 20 meq PO BID #180 tabs 03/24/22 04/23/22 Rx tablet,extended release indapamide 2.5 mg tablet 2.5 mg PO DAILY #90 tabs 04/06/22 04/23/22 Rx Allergies Allergy/AdvReac Type Severity Reaction Status Date / Time epinephrine Allergy Severe Agitated Verified 05/02/22 08:14 midazolam [From Versed] Allergy Severe Agitated Verified 05/02/22 08:14 Sulfa (Sulfonamide Allergy Intermediate RASH Verified 05/02/22 08:14 Antibiotics) Benzodiazepines AdvReac Severe agitation, Verified 05/02/22 08:14 insomnia Vital Signs Vital Signs - 2
[2022-05-02 09:34] VITALS: BP 102/69; PULSE 62; RESP 21; TEMP 36.1; O2SAT 98
[2022-05-02 09:44] VITALS: BP 102/62; PULSE 62; RESP 20; TEMP 36.1; O2SAT 98
[2022-05-02 09:54] VITALS: BP 107/76; PULSE 58; RESP 20; TEMP 36.1; O2SAT 98
== END 2022-05-02 09:59 | disposition home or self-care (01) ==
PROVIDERS: PCP Family Medicine; Visit Provider Internal Medicine Gastroenterology
PROC: 0DJD8ZZ Inspection of Lower Intestinal Tract, Via Natural or Artificial Opening Endoscopic (ICD-10-PCS; CPT 45378; principal; 2022-05-02 09:30)
DX: Z12.11 Encounter for screening for malignant neoplasm of colon (principal); D12.2 Benign neoplasm of ascending colon; K64.8 Other hemorrhoids; Z83.71 Family history of colonic polyps; I10 Essential (primary) hypertension; E03.9 Hypothyroidism, unspecified; E78.2 Mixed hyperlipidemia; F43.10 Post-traumatic stress disorder, unspecified; F32.A Depression, unspecified; Z87.891 Personal history of nicotine dependence; F12.90 Cannabis use, unspecified, uncomplicated
CPT/HCPCS: 45385; 88305; J2704; J7120

== ENCOUNTER → 2022-07-28 14:51 | Outpatient (CLI) | payer OTHER, SELFPAY ==
--- NOTE | ~2022-07-28 | MM_ITS ---
EXAMINATION: MM screening [facility] BI w олег HISTORY: Screening mammogram TECHNIQUE: Craniocaudal and mediolateral oblique 3-D tomosynthesis images were obtained and synthetic 2-D images were generated. CAD analysis was submitted and interpreted. COMPARISON: 07/05/2021, 05/29/2020 bilateral screening mammogram examinations BREAST PARENCHYMAL COMPOSITION: There are scattered areas of fibroglandular density. FINDINGS: Bilateral mammographic asymmetry and architectural distortion, stable, consistent with prio r bilateral breast reduction mammoplasty. There is a biopsy marker on the right. History of prior benign right breast biopsy. Occasional bilateral benign calcifications. No suspicious mass or new architectural distortion, malignant calcification, skin thickening or retra ction is detected. There is no evidence of suspicious mass, calcification, or architectural distortio n to suggest malignancy in either breast. There has been no suspicious interval change. IMPRESSION: 1. Status post bilateral reduction mammoplasty. No mammographic evidence of malignancy. 2. Recommend routine screening mammography in one year. BI-RADS Category 2: Benign finding(s). Reviewed, dictated and finalized at location A. IMPRESSION: 1. Status post bilateral reduction mammoplasty. No mammographic evidence of mal ignancy. 2. Recommend routine screening mammography in one year. BI-RADS Category 2: Benign finding(s).
== END ==
PROVIDERS: PCP Obstetrics & Gynecology; Visit Provider Obstetrics & Gynecology
DX: Z12.31 Encounter for screening mammogram for malignant neoplasm of breast (principal)
CPT/HCPCS: 77063; 77067

== ENCOUNTER 2022-09-23 10:06 | Outpatient (CLI) | payer OTHER, SELFPAY ==
[2022-09-23 11:08] LABS: Alanine Aminotransferase 29 U/L (6-35); Albumin Level 3.8 g/dL (3.5-5.1); Alkaline Phosphatase 73 U/L (38-126); Anion Gap 6 mmol/L (8-16); Aspartate Amino Transferase 33 U/L (14-36); Bilirubin,Total 0.8 mg/dL (0.2-1.3); Blood Urea Nitrogen 16 mg/dL (7-17); Calcium 8.5 mg/dL (8.4-10.2); Carbon Dioxide 26 mmol/L (22-30); Chloride 103 mmol/L (98-107); Cholesterol 158 mg/dL (0-200); Estimated Glomerular Filt Rate > 60; Glucose 95 mg/dL (65-110); HDL Direct 41 mg/dL; Potassium 3.7 mmol/L (3.4-5.0); Sodium 135 mmol/L (137-145); Triglycerides 104 mg/dL (<150)
[2022-09-23 11:19] LABS: LDL Cholesterol Direct 82 mg/dL
[2022-09-23 11:27] LABS: Free T4 Free Thyroxine 1.08 ng/mL (0.78-2.19)
== END 2022-09-23 10:07 | disposition home or self-care (01) ==
PROVIDERS: PCP Family Medicine; Visit Provider Physician Assistant
DX: Z00.00 Encounter for general adult medical examination without abnormal findings (principal); Z13.1 Encounter for screening for diabetes mellitus; Z13.220 Encounter for screening for lipoid disorders; E03.9 Hypothyroidism, unspecified; R94.6 Abnormal results of thyroid function studies
CPT/HCPCS: 36415; 80053; 80061; 84439; 84443

== ENCOUNTER 2023-05-04 11:50 | Outpatient (CLI) | payer OTHER, SELFPAY ==
[2023-05-04 12:23] LABS: Alanine Aminotransferase 22 U/L (6-35); Albumin Level 4.5 g/dL (3.5-5.1); Alkaline Phosphatase 81 U/L (38-126); Anion Gap 7 mmol/L (8-16); Aspartate Amino Transferase 29 U/L (14-36); Bilirubin,Total 0.9 mg/dL (0.2-1.3); Blood Urea Nitrogen 13 mg/dL (7-17); Calcium 9.6 mg/dL (8.4-10.2); Carbon Dioxide 24 mmol/L (22-30); Chloride 104 mmol/L (98-107); Cholesterol 200 mg/dL (0-200); Estimated Glomerular Filt Rate > 60; Glucose 105 mg/dL (65-110); HDL Direct 59 mg/dL; Potassium 3.9 mmol/L (3.4-5.0); Sodium 135 mmol/L (137-145); Triglycerides 97 mg/dL (<150)
[2023-05-04 12:34] LABS: LDL Cholesterol Direct 106 mg/dL
[2023-05-04 13:57] LABS: Thyroid Stimulating Hormone Reflex 0.783 uIU/mL (0.465-4.68)
== END 2023-05-04 11:51 | disposition home or self-care (01) ==
LOC: ANHLAB 11:52
PROVIDERS: PCP Family Medicine; Visit Provider Family Medicine
DX: E78.2 Mixed hyperlipidemia (principal); E03.9 Hypothyroidism, unspecified
CPT/HCPCS: 36415; 80053; 80061; 84443

== ENCOUNTER 2023-06-23 12:27 | Emergency (ER) | payer OTHER, SELFPAY ==
[2023-06-23] VITALS (20 sets, daily range): BP systolic 103–141; BP diastolic 62–98; PULSE 78–123; RESP 12–27; TEMP 37.1; O2SAT 90–100
--- NOTE | ~2023-06-23 | CT_ITS ---
EXAMINATION: CT chest abdomen pelvis w con DATE: 06/23/2023 14:19 INDICATION: Vomiting. Fever. TECHNIQUE: Computed tomography (CT) of the chest, abdomen, and pelvis was performed with 100 mL Omnip aque 350 intravenous contrast. Automated exposure control and iterative reconstruction technique were employed. The dose-length product was 514.99 mGy-cm. COMPARISON: CT abdomen and pelvis 05/31/2019 FINDINGS: CHEST CT: There is mild scarring at the lung apices. There is mild atelectasis bilaterally. No pleural effusion . The heart size is normal. No pericardial effusion. There is mild thoracic spondylosis. ABDOMEN/PELVIS CT: The liver, gallbladder, spleen, pancreas, adrenal glands, and kidneys are normal. There are no dilate d loops of bowel. The appendix is normal. There are no pathologically enlarged lymph nodes. There is no free intraperitoneal fluid. There is mild lumbar spondylosis. IMPRESSION: 1. No etiology for the patient's symptoms. Reviewed, dictated and finalized at location A.
[2023-06-23 12:55] LABS: Hematocrit 47.7 % (37.0-47.0); Hemoglobin 16.5 g/dL (12.0-15.0); Mean Corpuscular HGB Conc 34.6 g/dl (32-36); Mean Corpuscular Hemoglobin 27.2 pg (26-34); Mean Corpuscular Volume 78.6 fl (80-100); Mean Platelet Volume 10.2 fl (7.4-10.4); Platelet Count Result 148 k/mm3 (150-375); Red Blood Count 6.07 M/mm3 (4.2-5.4); Red Cell Distribution Width 12.9 % (11.5-14.5)
[2023-06-23 13:13] LABS: Alanine Aminotransferase 23 U/L (6-35); Alkaline Phosphatase 110 U/L (38-126); Anion Gap 12 mmol/L (4-12); Aspartate Amino Transferase 30 U/L (14-36); Bilirubin,Total 1.3 mg/dL (0.2-1.3); Blood Urea Nitrogen 18 mg/dL (7-17); Calcium 10.2 mg/dL (8.4-10.2); Carbon Dioxide 21 mmol/L (22-30); Chloride 104 mmol/L (98-107); Estimated CRCL calculation 88 ml/min; Estimated Glomerular Filt Rate > 60; Glucose 120 mg/dL (65-110); Lipase 106 U/L (23-300); Potassium 3.4 mmol/L (3.4-5.0); Sodium 137 mmol/L (137-145)
--- NOTE | 2023-06-23 13:22 | ED.ABDPAIN ---
HPI - Abdominal Pain General Chief Complaint: Nausea/Vomiting/Diarrhea Stated Complaint: N/V Time Seen by Provider: 06/23/23 13:13 History of Present Illness HPI narrative: Patient is a 57 year old female with history of anxiety, frequent urination, hypothyroidism here with nausea and vomiting. She notes that she recently recovered from a UTI, believed some of her urinary tract issues were causing continued lethargy. Last night she went to bed early, she notes she had a bar that had some artificial sweetener in it before bed. Around 1-2 AM she began having recurrent bouts of nausea and has vomited 12-13 times. She denies blood in her vomit, notes it was initially bile and is now just dry heaves. She has continued nausea. She additionally notes that her entire body hurts, describing myalgias to her back, neck and extremities. She denies fever. She is not currently on any antibiotics. Her at bedside notes he had a sour stomach this weekend after they attended a wedding but has since recovered without any issues. Related Data Home Medications Medication Instructions Recorded Confirmed cetirizine 10 mg tablet (Zyrtec) 10 mg PO DAILY 02/24/19 05/26/23 Vitamin C 1,000 mg PO DAILY 05/31/21 05/26/23 quetiapine 25 mg tablet 50 mg PO HS 07/21/22 05/26/23 Allergies Allergy/AdvReac Type Severity Reaction Status Date / Time Sulfa (Sulfonamide Allergy Intermediate RASH Verified 06/19/23 09:12 Antibiotics) Review of Systems Review of Systems: All systems reviewed & are unremarkable except as noted in HPI and below PMFSH Past Medical History Medical History Depression Diuretic-induced hypokalemia Essential hypertension Hypothyroidism determined by thyroid function test Migraines Mixed hyperlipidemia PONV (postoperative nausea and vomiting) PTSD (post-traumatic stress disorder) Surgical History Surgical History History of bilateral breast reduction surgery History of bunionectomy of right great toe History of hysterectomy History of tonsillectomy Status post hysteroscopic surgical removal of uterine septum Family History Family History Sibling Family history of blood dyscrasia Father Family history of pulmonary embolism Mother Family history of pulmonary embolism Social History Social History Years smoked: 2 Smoking status: Former smoker Tobacco type: cigarettes Second hand tobacco smoke exposure: No Smoking end date: 02/16/21 Alcohol intake: current Drinks per week: 4 Alcohol use details: socially Substance use: never Lack of Transportation: No Lack of Food: Never True Current Housing: I Have Housing Concerned About Future Housing: Decline to Answer Difficulty Paying Gas/Electric Bills: No Difficulty Paying for Meds: No Currently Unemployed: No Education: Master's Degree or Higher Difficulty w/ Childcare or Family Care: No Living arrangements: with family Occupation/Education: occupation Gender identity (if verbalized by the patient): Female Sexual Orientation (if Verbalized by the Patient): Straight or Heterosexual Spiritual care concerns: No Agree to blood products: Yes Exam Narrative: GENERAL: Well-appearing, well-nourished, and in no acute distress. HEAD: Normocephalic, atraumatic. EYES: PERRLA and EOMI. ENT: Nares clear. Mucous membranes moist. NECK: Supple. CHEST: Clear to auscultation. No respiratory distress. HEART: Regular rate and rhythm. Normal peripheral pulses. ABDOMEN: Soft, nontender, nondistended. No CVA tenderness. EXTREMITIES: Normal range of motion. No edema. SKIN: Warm, dry, no rash. NEURO: No focal deficits. Alert and oriented x3. PSYCH: Normal mood and affect. Course Course Emergency Co
[2023-06-23 13:32] LABS: Band Neutrophils Percent 16 % (0-6); Lymphocytes Absolute Manual 0.18 K/mm3 (1.1-4.5); Monocytes Absolute Manual 0.63 K/mm3 (0.1-0.90); Monocytes Percent Manual 7 % (3-9); Neutrophils Absolute Manual 8.19 K/mm3 (1.7-7.2); Neutrophils Percent Manual 75 % (46-73); Total Cells Counted 100
[2023-06-23 13:33] LABS: Giant Platelets Present; Large Platelets Present; Platelet Estimate Adequate (Adequate)
[2023-06-23 13:34] LABS: Schistocytes None Seen
[2023-06-23] MEDS: LACTATED RINGERS 1,000 ML 999 ML IV CONT (13:57)
[2023-06-23] MEDS: ONDANSETRON INJ 4 MG/2 ML VIAL IV PUSH (13:57)
[2023-06-23] MEDS: MORPHINE SULFATE (*CRX) 4 MG/ML INJ IV PUSH (13:57)
[2023-06-23 15:11] LABS: Thyroid Stimulating Hormone Reflex 0.035 uIU/mL (0.465-4.68)
[2023-06-23 15:13] LABS: Appearance Urine Clear (Clear); Bacteria Urine None Seen /hpf; Bilirubin Urine Negative (Negative); Blood Urine Negative (Negative); Color Urine Yellow (Yellow); Glucose Urine UA Negative (Negative); Ketones Urine 1+ mg/dL (Negative); Leukocyte Esterase Ur 2+ LEU/UL (Negative); Nitrate Urine Negative (Negative); Non Pathogenic Casts 0-2; Protein Urine Negative (Negative); RBC Urine 0-2 /hpf (0-2); Squamous Epithelial Cell Urine None Seen /hpf (Few); Urobilinogen Urine 0.2 mg/dL (<2.0); WBC Urine 51-100 /hpf (0-3)
[2023-06-23 15:16] LABS: Add Urine Microscopic? YES
[2023-06-23 15:44] LABS: Influenza A QL RT-PCR Negative (Negative); Influenza B QL RT-PCR Negative (Negative); RSV RNA, RT-PCR Negative (Negative); SARS-CoV-2 RNA PCR Negative (Negative)
[2023-06-23] MEDS: KETOROLAC 15 MG/ML VIAL (*BKC) IV PUSH (16:27)
[2023-06-23 16:47] LABS: Lactic Acid Reflex 1.6 mmol/L (0.7-2.0)
[2023-06-23] MEDS: SODIUM CHLORIDE 0.9% IV 1,000 ML 999 ML IV CONT (18:33)
[2023-06-23] MEDS: METOCLOPRAMIDE HCL INJ 10 MG/2 ML VIAL IV PUSH (18:33)
[2023-06-23 20:12] LABS: Total Triiodothyronine (T3) 1.48 NG/ML (0.97-1.69)
== END 2023-06-23 19:15 | disposition home or self-care (01) ==
PROVIDERS: Physician Assistant; Emergency Provider Student in an Organized Health Care Education/Training Program; PCP Family Medicine
DX: N30.00 Acute cystitis without hematuria (principal); R11.2 Nausea with vomiting, unspecified; R51.9 Headache, unspecified; Z20.822 Contact with and (suspected) exposure to COVID-19; I10 Essential (primary) hypertension; E03.9 Hypothyroidism, unspecified; E78.2 Mixed hyperlipidemia; F41.9 Anxiety disorder, unspecified; F32.A Depression, unspecified; F43.10 Post-traumatic stress disorder, unspecified; Z90.710 Acquired absence of both cervix and uterus; Z87.891 Personal history of nicotine dependence
CPT/HCPCS: 36415; 71260; 74177; 80053; 81001; 83605; 83690; 84439; 84443; 84480; 85025; 87040; 87086; 87637; 96361; 96374; 96375; 99284; J1885; J2270; J2405; J2765; J7030; J7120; Q9967

== ENCOUNTER 2023-09-19 11:14 | Outpatient (CLI) | payer OTHER, SELFPAY ==
--- NOTE | ~2023-09-19 | MM_ITS ---
EXAMINATION: MM screening [facility] BI w олег HISTORY: Screening mammogram TECHNIQUE: Craniocaudal and mediolateral oblique 3-D tomosynthesis images were obtained and synthetic 2-D images were generated. CAD analysis was submitted and interpreted. COMPARISON: 07/28/2022, 07/05/2021, 05/29/2020 BREAST PARENCHYMAL COMPOSITION:Not Dense. There are scattered areas of fibroglandular density. FINDINGS: Stable round subareolar right breast mass. Stable probable postsurgical distortion of both breasts. No suspicious mass, calcification, or new architectural distortion are identified in either breast to suggest malignancy. There has been no suspicious interval change. IMPRESSION: No mammographic evidence of malignancy. Recommend routine screening mammography in one year. BI-RADS Category 2: Benign finding(s). Reviewed, dictated and finalized at [facility].
== END 2023-09-19 11:15 ==
LOC: MICIMG 11:15
PROVIDERS: PCP Family Medicine; Visit Provider Obstetrics & Gynecology
DX: Z12.31 Encounter for screening mammogram for malignant neoplasm of breast (principal)
CPT/HCPCS: 77063; 77067

== ENCOUNTER 2023-10-13 09:46 | Outpatient (CLI) | payer OTHER, SELFPAY ==
[2023-10-13 11:16] LABS: Thyroid Stimulating Hormone Reflex 0.375 uIU/mL (0.465-4.68)
[2023-10-13 17:00] LABS: Free T4 Free Thyroxine Reflex 1.36 ng/dL (0.78-2.19)
[2023-10-14 06:21] LABS: Total Triiodothyronine (T3) 1.26 NG/ML (0.97-1.69)
== END 2023-10-13 09:47 | disposition home or self-care (01) ==
LOC: ANHLAB 09:48
PROVIDERS: PCP Family Medicine; Visit Provider Family Medicine
DX: E03.9 Hypothyroidism, unspecified (principal)
CPT/HCPCS: 36415; 84439; 84443; 84480

== ENCOUNTER 2023-12-01 09:36 | Outpatient (CLI) | payer OTHER, SELFPAY ==
[2023-12-01 13:13] LABS: Free T4 Free Thyroxine Reflex 0.89 ng/dL (0.78-2.19)
[2023-12-01 14:13] LABS: Total Triiodothyronine (T3) 1.09 NG/ML (0.97-1.69)
== END 2023-12-01 09:37 | disposition home or self-care (01) ==
LOC: ANHLAB 09:40
PROVIDERS: PCP Family Medicine; Visit Provider Family Medicine
DX: E03.9 Hypothyroidism, unspecified (principal)
CPT/HCPCS: 36415; 84439; 84443; 84480

== ENCOUNTER 2024-04-12 10:06 | Outpatient (CLI) | payer OTHER, SELFPAY ==
[2024-04-12 11:08] LABS: Alanine Aminotransferase 25 U/L (6-35); Albumin Level 4.5 g/dL (3.5-5.1); Alkaline Phosphatase 66 U/L (38-126); Aspartate Amino Transferase 31 U/L (14-36); Bilirubin,Total 0.9 mg/dL (0.2-1.3)
[2024-04-12 11:27] LABS: Influenza A QL RT-PCR Negative (Negative); Influenza B QL RT-PCR Negative (Negative); RSV RNA, RT-PCR Negative (Negative); SARS-CoV-2 RNA PCR Negative (Negative)
--- OUTSIDE RECORDS SUMMARY | 2024-04-12 11:43 | XMS_ITS | Referral Summary ---
Author Organization [facility] Address [address] [place] [address] Care Team Providers Care Stretching Machine Tender Frame Name Role Phone Yandel Iqbal MD Primary Care Provider [phone] Source Comments [facility],non-owned Affiliates and Associated Physician Practices is amultiple site organization consisting of ambulatory clinics and hospital sitesin [place], [place], [place] and [place]. This disclosure is being madepursuant to the Care Everywhere program and may not contain all information available regarding this patient. Last updated 17.[facility] Social History Tobacco Use Types Packs/Day Years Used Date Smoking Tobacco: Never Assessed Sex and Gender Information Value Date Recorded Sex Assigned at Not on file Gender Identity Not on file Sexual Orientation Not on file Plan of Treatment Not on file Care Teams Stretching Machine Tender Frame Relationship Specialty Start Date End Date Yandel Iqbal MD [address] [place] [address] PCP - General 05/05/22
--- OUTSIDE RECORDS SUMMARY | 2024-04-12 11:43 | XMS_ITS | Encounter Summary ---
Author Organization [facility] Address [address] [place] [address] Care Team Providers Care Business Dean Name Role Phone Yandel Iqbal MD Primary Care Provider [phone] Encounter Details Date Type Department Care Team (Late st Contact Info) Description 10/21/2023 Lab Requisition [facility] - DermPath Lab [address] [place] [id number] Tal Aldana MD [address] [place], [place] [id number] Social History Tobacco Use Types Packs/Day Years Used Date Smoking Tobacco: Never Assessed Sex and Gender Information Value Date Recorded Sex Assigned at Not on file Gender Identity Not on file Sexual Orientation Not on file documented as of this encounter Plan of Treatment Not on file documented as of this encounter Procedures Procedure Name Priority Date/Time Associated Diagnosis Comments DERMATOPATHOLOGY Routine 10/20/2023 12:0 0 AM CDT documented in this encounter Results * DERMATOPATHOLOGY (10/20/2023 12:00 AM CDT) Case Report Dermatopathology Report Case: [id number] Authorizing Provider: Tal Aldana MD Collected: 10/20/2023 12:00 AM Ordering Location: [facility] Physician [facility] - Received: 10/22/2023 06:49 AM DermPath Lab Pathologist: Tash Alcantara MD Specimen: Skin, left neck 4 4:00 PM CDT DERMATOPATHOLOGY LABORATORY Final Diagnosis Specimen A. SKIN, left neck: SQUAMOUS CELL CARCINOMA, WELL DIFFERENTIATED, LIKELY ARISING WITHIN A VIRAL VERRUCA (C44.42) NOT PRESENT AT MARGIN 4:00 PM CDT DERMATOPATHOLOGY LABORATORY Clinical History Sccis vs SCC 4:00 PM CDT DERMATOPATHOLOGY LABORATORY Gross Description Specimen A: Received is one formalin filled container labeled with the patient's name and designated left neck. The specimen consists of a non-oriented ellipse of skin measuring 4x3x7 mm. The epidermal surface is unremarkable. The margin is inked green. The 12 o'clock and 6 o'clock tips are submitted in cassette 1. The remainder of the ellipse is serially sectioned and submitted in cassette 2. Jar 0. 4 4:00 PM CDT DERMATOPATHOLOGY LABORATORY Microscopic Description Specimen A. SKIN, left neck: Sections show digitated epidermal hyperplasia with hypergranulosis in the dells between papillations, as well as a proliferation of atypical keratinocytes that extends into the underlying dermis. This lesion is not present at the margin of the specimen. 4:00 PM CDT DERMATOPATHOLOGY LABORATORY Disclaimer An external and internal positive and negative controls are appropriate for the histochemical, immunohistochemical and immunofluorescence stain(s) in this case (if any), except where stated explicitly. The performance characteristics of the stain(s) cited in this report were developed and its performance characteristic determined by the Dermatopathology Laboratory at [facility], directed by Dr. Lionel Singh. These tests need not be, and therefore are not, approved by the [place] Food and Drug Administration. The tests are used for clinical purposes. Billing Codes Specimen Charges Stain Charges 75922 1 4:00 PM CDT DERMATOPATHOLOGY LABORATORY Embedded Images 4:00 PM CDT DERMATOPATHOLOGY LABORATORY Pathology/Cytolog y TISSUE SPECIMEN FROM SKIN / Unknown 10/20/2023 10/22/2023 6:49 AM CDT Tal Aldana MD LAB - PATHOLOGY/CYTO LOGY ORDERABLES DERMATOPATHOLOGY LABORATORY [facility] - Department of Dermatology [facility]ly [facility] Medicine [address] [place] [address], [address] [phone] documented in this encounter Visit Diagnoses Not on filedocumented in this encounter Care Teams Business Dean Relationship Specialty Start Date End Date Yandel Iqbal MD [address] [place] [address] PCP - General 05/05/22 documented as of this encounter
--- OUTSIDE RECORDS SUMMARY | 2024-04-12 11:43 | XMS_ITS ---
Author Organization [facility] Address [address] [place] [address] Care Team Providers Care Skid Adzer Name Role Phone America Oropeza MD Primary Care Provider Angelina Montez Unavailable [phone] Kim Andersen Unavailable [phone] Allergies Allergen (clinical drug ingredient) Drug/Non Drug Allergy documented on EMR Reaction Allergy Type Onset Date Status Septra Unknown Drug Allergy 05/27/2023 Active REASON FOR VISIT follow up Medications Medication SIG (Take, Route, Frequency, Duration) Notes Start Date End Date Status Naratriptan HCl 2.5 MG Oral 05/27/2023 Active Levothyroxine Sodium 88 MCG Oral 05/27/2023 Active QUEtiapine Fumarate 50 MG 1 tablet at bedtime Oral Once a day for 30 days 05/27/2023 Active DayVigo 10 MG 1 tablet at bedtime Oral Once a day for 30 days As needed 11/25/2023 05/23/2024 Active Potassium Chloride ER 20 MEQ Oral 05/27/2023 Active INDAPAMIDE 2.5 MG TABS *Reorder from [employer] for eRx and Interaction Alerts* 05/27/2023 Active Atorvastatin Calcium 20 MG Oral 05/27/2023 Active Social History Tobacco Use: Social History Observation Description Date Details (start date - stop date) Former Smoker NA - NA Sex Assigned At : Social History Observation Description Sex Assigned At Female Tobacco Control (Standard) Question Answer Notes Tobacco use: Former smoker How long has it been since you last smoked? 1-5 years Problems Problem Type SNOMED Code ICD Code Onset Dates Problem Status W/U Status Risk Notes Problem Hypothyroidism (93920326) Hypothyroidism, unspecified (E03.9) 4 Active confirmed Problem Generalized anxiety disorder (59122602) Generalized anxiety disorder (F41.1) 4 Active confirmed Problem Primary insomnia (4002543) Primary insomnia (F51.01) 4 Active confirmed Problem Mild recurrent major depression (14264528) Major depressive disorder, recurrent, mild (F33.0) 4 Active confirmed Vital Signs Blood pressure systolic 128 mm Hg 11/25/19 24 Blood pressure diastolic 88 mm Hg 024 Heart Rate 76 /min 11/25/2023 Height 68.00 in 11/25/2023 Weight 163 lbs 11/25/2023 BMI 24.78 kg/m2 11/25/2023 Height-cm 172.72 cm 11/25/2023 Weight-kg 73.94 kg 11/25/2023 Encounters Encounter Location Date Provider Diagnosis [id number] [address] [facility] [address] [place] [address] 11/25/2023 Kim Ganesh Primary insomnia F51.01 ; Major depressive disorder, recurrent, mild F33.0 ; Generalized anxiety disorder F41.1 and Hypothyroidism, unspecified E03.9 Assessments Encounter Date Diagnosis (ICD Code) Assessment Notes Treatment Notes Treatment Clinical Notes Section Notes 11/25/2023 Primary insomnia (ICD-10 - F51.01) quetiapine cont dayvigo 10mg qhs prn-does not take every night if not struggling 11/25/2023 Major depressive disorder, recurrent, mild (ICD-10 - F33.0) cont quetiapine 50mg qhs (no longer taking 75mg-did over summer) she plans to talk to PCP about taking over meds as visits here are costly. wants send copy of today's note to PCP: America Oropeza in [place]-sent through w [facility], satisfied with current meds; some wt gain, consider causes, psych medication-review r/b/se including metabolic, decrease in thyroid med, more sedentary with work, etc. She is working on diet and exercise, monitor, does not want to change quetiapine. not in therapy, cost issues f/u 6 months (here or with PCP), earlier if concerns -discussed transition to new provider as I am leaving the practice after this month Note: she does not want anything that will hit KATHLEEN receptors, or an antidepressant (reports had a seizure). did not tolerate belsomra. does not want ambien/lunesta/z-d rugs, or something like mirtazapine. As was on BZO for 10 yrs and weaned herself off over 12 months in 2019, was awful experience 11/25/2023 Generalized anxiety disorder (ICD-10 - F41.1) as above 11/25/2023 Hypothyroidism, unspecified (ICD-10 - E03.9) managed by Dr Syed Plan Of Treatment Medication Medication Name Sig Start Date Stop Date Notes QUEtiapine Fumarate 50 MG 1 tablet at be dtime Oral Once a day for 30 days 05/27/2023 DayVigo 10 MG 1 tablet at bedtime Oral Once a day for 30 days 11/25/2023 05/23/2024 Treatment Notes Assessment Notes Primary insomnia quetiapine cont dayvigo 10mg qhs prn-does not take every night if not struggling Major depressive disorder, recurrent, mi ld cont quetiapine 50mg qhs (no longer taking 75mg-did over summer) she plans to talk to PCP about taking over meds as visits here are costly. wants send copy of today's note to PCP: America Oropeza in [facility]-sent through [facility] Generalized anxiety disorder as above Hypothyroidism, unspecified managed by Noris Syed Next Appt Details Follow Up: 6 Months, Reason: Provider Name:Angelina adams, 06/02/2024 11:00:00 AM, [address] [address], [facility], [place], [address], Progress Notes * CHAPIN PHELANOB: 5 (58 yo F)Acc No.[id number]:11/25/2023 Patient: IBETH SOTO Provider: LESLEE PIPER :1965 A ge:58 Y S ex:Female Date:11/25/2023 Address:[address] [place] [address], [id number] Pcp:America Oropeza MD Subjective: * Chief Complaints: * 1 . Follow up. * HPI: D epression Screening: KODAK-7 (2018 Edition) F eeling nervous, anxious, or on edge?Not at all, N ot being able to stop or control worrying N ot at all, W orrying too much about different things N ot at all, T rouble relaxing N ot at all, B eing so restless that it is hard to sit still N ot at all, B ecoming easily annoyed or irritable N ot at all, F eeling afraid as if something awful might happen N ot at all, T otal KODAK-7 Score 0 , I nterpretation of Total ( 0 to 4) No Anxiety. D epression screening: PHQ-9 L ittle interest or pleasure in doing things N ot at all, F eeling down, depressed, or hopeless N ot at all, T rouble falling or staying asleep, or sleeping too much N ot at all, F eeling tired or having little energy N ot at all, P oor appetite or overeating N ot at all, F eeling bad about yourself or that you are a failure, or have let yourself or your family down N ot at all, T rouble concentrating on things, such as reading the newspaper or watching television N ot at all, M oving or speaking so slowly that other people could have noticed; or the opposite, being so fidgety or restless that you have been moving around a lot more than usual N ot at all, T houghts that you would be better off or of hurting yourself in some way N ot at all, T otal Score 0 . I ntervention D epression Screening Findings N egative, F ollow-Up for Depression M ental health care management, S uicide Risk Assessment Performed 1 , A dditional Evaluation for Depression P sychiatric interview and evaluation, N paco of the standardized tool used for adult depression screening: P atient Health Questionnaire (PHQ-9). H istory of Presenting Problem: 58 y/o female, here to f ollow up for depression, anxiety, and insomnia last visit 05/27/23 and no med c hange at that visit. I w as having trouble sleeping over summer, and was taking 75mg s eroquel; but then went to doctor and had thyroid tested and it was high, so they addressed/decreased meds and the sleep got better. depression is fine, denies SI. I don't get overly anxious about things nearly as much since quetiapine. Denies kajal, psychosis. 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 trying to work on diet and exercise, and has decreased thyroid meds and was taking higher quetiapine but decreased. substance update: caffeine: 2 c ups coffee only at AM half caffeinated ETOH none cannabis s topped gummies as gave headaches denies other substance medical: thyroid as above. * ROS: P sychiatric: Comments S [facility] for details. * Medical History: P roblems: Generalized anxiety disorder, Hyponatremia, Hypothyroidism, Long-term drug therapy, Mild recurrent major depression, Primary insomnia, ,. * Surgical History: U nlisted procedure breast (80916) , Hysterectomy/revise vagina (24943) , Endometr ablate thermal (79101) , Hysterectomy (07427) 05/02/2016, Endometrial ablation (58287) 07/05/2006, Breast surgery (97857) 09/05/2015. * Hospitalization/Major Diagno stic Procedure: D enies Past Hospitalization. * Family History: P aternal Aunt: Alcohol abuse . P aternal Uncle: Alcohol abuse , Bipolar disorder . M other: Bipolar disorder , Hypothyroidism . M aternal Grandfather: Substance abuse , Alcohol abuse . * Social History: T obacco Use: T obacco Control (Standard) T obacco use: F ormer smoker, H ow long has it been since you last smoked? 1 -5 years. * Medications: T aking INDAPAMIDE 2.5 MG TABS , Notes to Pharmacist: *Reorder from [employer] for eRx and Interaction Alerts*, Taking Atorvastatin Calcium 20 MG Tablet Oral , Taking Potassium Chloride ER 20 MEQ Tablet Extended Release Oral , Taking Naratriptan HCl 2.5 MG Tablet Oral , Taking Levothyroxine Sodium 88 MCG Tablet Oral , Taking DayVigo 10 MG Tablet Oral , Notes to Pharmacist: *Reorder from [facility] for eRx and Interaction Alerts*, Taking QUEtiapine Fumarate 50 MG Tablet 1 tablet at bedtime Oral Once a day , Discontinued Levothyroxine Sodium 100 MCG Tablet Oral , Discontinued Ciprofloxacin HCl 500 MG Tablet Oral , Discontinued Nitrofurantoin Monohyd Macro 100 MG Capsule Oral , Discontinued ALPRAZOLAM 1 MG TABS , Notes to Pharmacist: *Reorder from [facility] for eRx and Interaction Alerts*, Discontinued Indapamide 2.5 mg Tablet Oral , Discontinued Belsomra 20 mg Tablet Oral , Medication List reviewed and reconciled with the patient * Allergies: S eptra: Allergy - Onset Date 05/27/2023. Objective: * Vitals: B P:128/88mm Hg, HR:76/min, Wt:163lbs, Wt-k.94 kg, Ht: 68.00 in, Ht-cm: 172.72 cm, BMI:24.78Index, Body Surface Area: 1.88. * Examination: P sychiatry: Appearance: A ppearance: alert,well-groomed, clean, appears well rested. No acute physical distress. B ehavior: eye contact good,cooperative, pleasant. Abnormal body movements: n one. Affect / mood: a ppropriate, full range. Attention: n ormal in conversation. Attitude: c ooperative. Suicidal ideation: n one. Memory status: n o impairment noted. Degree of awareness of surroundings: w ithin normal limits.? Delusions: n o. Hallucinations: n o. Insight: g ood. Intellectual functioning: n o impairment noted. Judgement: g ood. Orientation: a wake, alert and oriented x 3. Perceptual disorders: n o perceptual disorder noted. Psychomotor activity: w ithin normal range. Speech / language: a ppropriate pitch/modulation, clear and coherent, normal rate, volume, and articulation (RVR), proper grammar used. Thought content: a ppropriate. Thought process: i ntact. Assessment: * Assessment: 1. M ajor depressive disorder, recurrent, mild - F33.0 (Primary) 2 . P rimary insomnia - F51.01 3 . G eneralized anxiety disorder - F41.1 4 . H ypothyroidism, unspecified - E03.9 Plan: * Treatment: 2. P rimary insomnia Refill DayVigo Tablet, 10 MG, 1 tablet at bedtime, Oral, Once a day As needed, 30 days, 30 Tablet, Refills 5. Notes: quetiapine cont dayvigo 10mg qhs prn-does not take every night if not struggling 3. G eneralized anxiety disorder Notes: as above 4. H ypothyroidism, unspecified Notes: managed by Dr Syed * Procedure Codes: 9 6127 BEHAV ASSMT W/SCORE & DOCD/STAND INSTRUMENT * Follow Up: 6 Months * Billing Information: * Visit Code: 07738 OFFICE OUTPATIENT VISIT 25 MINUTES DETAILED HISTORY AND EXAM/MODERATE MEDICAL DECISION MAKING. * Procedure Codes: 88307 BEHAV ASSMT W/SCORE & DOCD/STAND INSTRUMENT. 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 History and Physical Notes * HPI (History of Present Illness) Category Sub-Category Detail Notes Category Not es Depression screening PHQ-9 Little inte rest or pleasure in doing things: Not at all Feeling down, depressed, or hopeless: No t at all Trouble falling or staying asleep, or sl eeping too much: Not at all Feeling tired or having little energy: N ot at all Poor appetite or overeating: Not at all Feeling bad about yourself o r that you are a failure, or have let yourself or your family down: Not at all Trouble concentrating on thi ngs, such as reading the newspaper or watching television: Not at all Moving or speaking so slowly that other people could have noticed; or the opposite, being so fidgety or restless that you have been moving around a lot more than usual: Not at all Thoughts that you would be b loli off or of hurting yourself in some way: Not at all Total Score: 0 Intervention Depression Screening Findings: N egative Follow-Up for Depression: Mental health care management Suicide Risk Assessment Performed: 11/24 Additional Evaluation for Depression: Ps ychiatric interview and evaluation Name of the standardized too l used for adult depression screening:: Patient Health Questionnaire (PHQ-9) Depression Screening KODAK-7 (2018 Edition) Feelin g nervous, anxious, or on edge: Not at all Not being able to stop or control worryi ng: Not at all Worrying too much about different things : Not at all Trouble relaxing: Not at all Being so restless that it is hard to sit still: Not at all Becoming easily annoyed or irritable: No t at all Feeling afraid as if something awful carmela ht happen: Not at all Total KODAK-7 Score: 0 Interpretation of Total: (0 to 4) No Anx iety Examination Category Sub-Category Detail Notes Category Not es Psychiatry Appearance: Appearance: alert, well-groomed, clean, appears well rested. No acute physical distress. Behavior: eye contact good, cooperative, pleasant Attitude: cooperative Psychomotor activity: within normal rang e Abnormal body movements: none Attention: normal in conversati on Degree of awareness of surroundings: wit hin normal limits Orientation: awake, alert and moriah ented x 3 Affect / mood: appropriate, full ra nge Speech / language: appropriate pitch/mo dulation, clear and coherent, normal rate, volume, and articulation (RVR), proper grammar used Insight: good Judgement: good Thought process: intact Thought content: appropriate Perceptual disorders: no perceptual diso rder noted Suicidal ideation: none Intellectual functioning: no impairment noted Memory status: no impairment noted Delusions: no Hallucinations: no
--- OUTSIDE RECORDS SUMMARY | 2024-04-12 11:43 | XMS_ITS | Encounter Summary ---
Author Organization [facility] Address [address] [place] [address] Care Team Providers Care Physician Underwriter Name Role Phone Yandel Iqbal MD Primary Care Provider [phone] Encounter Details Date Type Department Care Team (Late st Contact Info) Description 12/07/[address] [facility] - DermPath Lab [address] [place] [id number] Tal Aldana MD [address] [place], [place] [id number] Social History Tobacco Use Types Packs/Day Years Used Date Smoking Tobacco: Never Assessed Sex and Gender Information Value Date Recorded Sex Assigned at Not on file Gender Identity Not on file Sexual Orientation Not on file documented as of this encounter Plan of Treatment Not on file documented as of this encounter Procedures Procedure Name Priority Date/Time Associated Diagnosis Comments DERMATOPATHOLOGY Routine 12/04/2023 12:0 0 AM CDT documented in this encounter Results * DERMATOPATHOLOGY (12/04/2023 12:00 AM CDT) Case Report Dermatopathology Report Case: [id number] Authorizing Provider: Tal Aldana MD Collected: 12/04/2023 12:00 AM Ordering Location: [facility] Physician [facility] - Received: 12/07/2023 01:54 PM DermPath Lab Pathologist: Angelina Alcantara MD Specimens: A) - Skin, dorsal right hand B) - Skin, midline upper chest C) - Skin, left upper back 12:55 PM CDT DERMATOPATHOLOGY LABORATORY Final Diagnosis Specimen A. SKIN, dorsal right hand: HYPERPLASTIC (HYPERTROPHIC) ACTINIC KERATOSIS, LICHENOID (L57.0) (see microscopic description) Specimen B. SKIN, midline upper chest: ACTINIC KERATOSIS, LICHENOID (L57.0) Specimen C. SKIN, left upper back: ACTINIC KERATOSIS (L57.0) EPIDERMAL NECROSIS SUGGESTIVE OF EXCORIATION (L98.499) 12:55 PM [facility] DERMATOPATHOLOGY LABORATORY Clinical History A-C: R/O SCC vs BCC vs Ramos's 12:55 PM [facility] DERMATOPATHOLOGY LABORATORY Gross Description Specimen A: Received is one formalin filled container labeled with the patient's name and designated dorsal right hand. The specimen consists of a shave biopsy measuring 5x5x1 mm. Jar 0. Specimen B: Received is one formalin filled container labeled with the patient's name and designated midline upper chest. The specimen consists of a shave biopsy measuring 8x7x2 mm. Jar 0. Specimen C: Received is one formalin filled container labeled with the patient's name and designated left upper back. The specimen consists of a shave biopsy measuring 7x6x1 mm. Jar 0. 12:55 PM [facility] DERMATOPATHOLOGY LABORATORY Microscopic Description Specimen A. SKIN, dorsal right hand: There is hyperkeratosis alternating with parakeratosis. There is epidermal hyperplasia with disorderly maturation of keratinocytes with nuclear pleomorphism confined to the lower half of the epidermis. The dermis shows a band-like, chronic inflammatory infiltrate with occasional apoptotic keratinocytes and some basal vacuolar alteration. Specimen B. SKIN, midline upper chest: There is focal parakeratosis. The lower half of the epidermis shows disorderly maturation of keratinocytes with nuclear pleomorphism. The dermis shows a band-like, chronic inflammatory infiltrate with occasional apoptotic keratinocytes and some basal vacuolar alteration. Specimen C. SKIN, left upper back: There is focal parakeratosis. The lower half of the epidermis shows disorderly maturation of keratinocytes with nuclear pleomorphism. The epidermis is focally necrotic and covered with a scale-crust. There is fibrin at the base. 12:55 PM [facility] DERMATOPATHOLOGY LABORATORY Disclaimer An external and internal positive and negative controls are appropriate for the histochemical, immunohistochemical and immunofluorescence stain(s) in this case (if any), except where stated explicitly. The performance characteristics of the stain(s) cited in this report were developed and its performance characteristic determined by the Dermatopathology Laboratory at [facility], directed by Dr. Lionel Singh. These tests need not be, and therefore are not, approved by the [place] Food and Drug Administration. The tests are used for clinical purposes. Billing Codes Specimen Charges Stain Charges 25681 [id number] 1 1 1 12:55 PM CDT DERMATOPATHOLOGY LABORATORY Embedded Images 12:55 PM CDT DERMATOPATHOLOGY LABORATORY Pathology/Cytology TISSUE SPECIMEN FROM SKIN / Unknown 12/04/2023 12/07/2023 1:54 PM CDT Miscellaneous samples (specimen) TISSUE SPECIMEN FROM SKIN / Unknown 12/04/2023 12/07/2023 1:54 PM CDT Miscellaneous samples (specimen) TISSUE SPECIMEN FROM SKIN / Unknown 12/04/2023 12/07/2023 1:54 PM CDT Tal Aldana MD LAB - PATHOLOGY/CYTO LOGY ORDERABLES Performing Organization Address City/State/[facility] Co de Phone Number DERMATOPATHOLOGY LABORATORY [facility] - Department of Dermatology [facility] Specialized Medicine [address] [place] [address], [address] [phone] documented in this encounter Visit Diagnoses Not on filedocumented in this encounter Care Teams Physician Underwriter Relationship Specialty Start Date End Date Yandel Iqbal MD [address] [place] [address] PCP - General 05/05/22 documented as of this encounter
--- OUTSIDE RECORDS SUMMARY | 2024-04-12 11:43 | XMS_ITS | Patient Health Summary ---
Author Organization [facility] Address [address] [place] [address] Care Team Providers Care District Gauger Name Role Phone Yandel Iqbal MD Primary Care Provider [phone] Note from [facility] [place],non-owned Affiliates and Associated Physician Practices is amultiple site organization consisting of ambulatory clinics and hospital sitesin [place], [place], [place] and [place]. This disclosure is being madepursuant to the Care Everywhere program and may not contain all information available regarding this patient. Last updated 17.[facility] Social History Tobacco Use Types Packs/Day Years Used Date Smoking Tobacco: Never Assessed Sex and Gender Information Value Date Recorded Sex Assigned at Not on file Gender Identity Not on file Sexual Orientation Not on file Procedures * DERMATOPATHOLOGY(Performed 12/04/2023) * DERMATOPATHOLOGY(Performed 10/20/2023) Results * DERMATOPATHOLOGY (12/04/2023 12:00 AM CDT) Only the most recent of2 resultswithin the time period is included. Case Report Dermatopathology Report Case: [id number] Authorizing Provider: Tal Aldana MD Collected: 12/04/2023 12:00 AM Ordering Location: [facility] - Received: 12/07/2023 01:54 PM DermPath [...] NECROSIS SUGGESTIVE OF EXCORIATION (L98.499) 12:55 PM T DERMATOPATHOLOGY LABORATORY Clinical History A-C: R/O SCC vs BCC vs Ramos's 12:55 PM T DERMATOPATHOLOGY LABORATORY Gross Description Specimen A: Received [...] measuring 7x6x1 mm. Jar 0. 12:55 PM T DERMATOPATHOLOGY LABORATORY Microscopic Description Specimen A. SKIN, [...] is fibrin at the base. 12:55 PM T DERMATOPATHOLOGY LABORATORY Disclaimer An external and internal positive and negative controls are appropriate for the histochemical, immunohistochemical and immunofluorescence stain(s) in this case (if any), except where stated explicitly. The performance characteristics of the stain(s) cited in this report were developed and its performance characteristic determined by the Dermatopathology Laboratory at [facility], directed by Dr. Lionel Singh. These tests need not be, and therefore are not, approved by the [place] Food and Drug Administration. The tests are used for clinical purposes. Billing Codes Specimen Charges Stain Charges 12915 [id number] 1 1 1 12:55 PM CDT DERMATOPATHOLOGY [...] LAB - PATHOLOGY/CYTO LOGY ORDERABLES DERMATOPATHOLOGY LABORATORY [facility] - Department of Dermatology [facility] Specialized Medicine [address] [place] [address], [address] [phone] Care Teams District Gauger Relationship Specialty Start Date End Date Yandel Iqbal MD [address] [place] [address] PCP - General 05/05/22
--- OUTSIDE RECORDS SUMMARY | 2024-04-12 11:43 | XMS_ITS | Clinical Summary ---
Author Organization [facility] [employer] Address [address] [place] [address] Care Team Providers Care President Ceo & Founder Name Role Phone Yandel Iqbal MD Primary Care Provider [phone] Source Comments [facility] [employer],non-owned Affiliates and Associated Physician Practices is amultiple site organization consisting of ambulatory clinics and hospital sitesin [place], [place], [place] and [place]. This disclosure is being madepursuant to the Care Everywhere program and may not contain all information available regarding this patient. Last updated 17.[facility] [employer] Social History Tobacco Use Types Packs/Day Years Used Date Smoking Tobacco: Never Assessed Sex and Gender Information Value Date Recorded Sex Assigned at Not on file Gender Identity Not on file Sexual Orientation Not on file Plan of Treatment Health Maintenance Due Date Last Done Comments COLOGUARD (AGES 45-75) - COL ON CA SCREENING 1964 COLON MONITORING 1964 COLONOSCOPY - COLON CA SCREENING 1964 CT COLONOGRAPHY - COLON CA SCREENING 1964 Colorectal Cancer Screening 1964 FIT - COLON CA SCREENING 1964 FLEX SIG - COLON CA SCREENING 1964 LIPID TESTING 1964 MAMMOGRAM 1964 PAP SMEAR 1964 HIV SCREENING 10/31/1979 HEPATITIS C SCREENING 10/26/1982 DTAP/TDAP/TD VACCINES (1 - Tdap) 10/31/1983 HEPATITIS B VACCINE (1 of 3 - 19+ 3-dose series) 10/31/1983 PNEUMOCOCCAL VACCINE 50+ (1 of 1 - PCV) 2014 ZOSTER VACCINE (1 of 2) 2014 COVID-19 VACCINE ( - 2023-2 5 season) 2023 INFLUENZA VACCINE (#1) 2023 DEPRESSION SCREENING 02/17/2024 HIB VACCINE Aged Out No longer eligi ble based on patient's age to complete this topic HPV VACCINE Aged Out No longer eligi ble based on patient's age to complete this topic MENINGOCOCCAL (Group B) VACCINE Aged Out No longer eligible based on patient's age to complete this topic MENINGOCOCCAL VACCINE Aged Out No jacinto kiko eligible based on patient's age to complete this topic PNEUMOCOCCAL VACCINE Aged Out No long er eligible based on patient's age to complete this topic Care Teams President Ceo & Founder Relationship Specialty Start Date End Date Yandel Iqbal MD [address] [place], [place] [id number] PCP - General 05/05/22
--- OUTSIDE RECORDS SUMMARY | 2024-04-12 11:43 | XMS_ITS ---
Author Organization [facility] [employer] [facility] Address [facility] [address] [facility] [address] [place] [address] Care Team Providers Care Vp Of Customer Experience Strategy Name Role Phone America Oropeza MD Primary Care Provider Angelina Montez Unavailable [phone] Social History Sex Assigned At : Social History Observation Description Sex Assigned At Female Encounters Encounter Location Date Provider Diagnosis [facility] Opality [place] [id number] [facility] [address] [facility] [address] [place] [address] 03/23/2024 Angelina Singh Plan Of Treatment Next Appt Details Provider Name:Angelina adams, 06/02/2024 11:00:00 AM, [address], [facility] [address], [place], [address], Progress Notes * CHAPIN PHELANOB: 5 (58 yo F)Acc No.[id number]:03/23/2024 Patient: Wanda VARSHABOBOIBETH SOLORIO :1965 A ge:58 Y S ex:Female Address:[address] [place] [address], [facility] [address] * true * Date: Generated for [place] hinds/Sorin/eTransmitting on: 0 04/12/2024 11:43 AM BLACK TOP ROLLER
--- OUTSIDE RECORDS SUMMARY | 2024-04-12 11:43 | XMS_ITS ---
Author Organization [facility] [employer] Address [address] [facility] [address] [place] [address] Care Team Providers Care Change Management Analyst Name Role Phone America Oropeza MD Primary Care Provider Angelina Montez [phone] REASON FOR VISIT QUEtiapine Medications Medication SIG (Take, Route, Frequency, Duration) Notes Start Date End Date Status QUEtiapine Fumarate 50 MG 1 tablet at bedtime Oral Once a day 05/27/2023 Active QUEtiapine Fumarate 25 MG 1 tablet at bedtime Orally Once a day for 30 days As needed taking 50 mg at night every night, occasionally another 25 mg as needed 01/26/2024 Active Social History Sex Assigned At : Social History Observation Description Sex Assigned At Female Encounters Encounter Location Date Provider Diagnosis [facility] [address] [facility] [address] [facility] [address] [place] [address] 01/26/2024 Angelina Singh Major depressive disorder, recurrent, mild F33.0 and Primary insomnia F51.01 Assessments Encounter Date Diagnosis (ICD Code) Assessment Notes Treatment Notes Treatment Clinical Notes Section Notes 01/26/2024 Major depressive disorder, recurrent, mild (ICD-10 - F33.0) taking 50 mg at night every night, occasionally another 25 mg as needed 01/26/2024 Primary insomnia (ICD-10 - F51.01) Plan Of Treatment Medication Medication Name Sig Start Date Stop Date Notes QUEtiapine Fumarate 50 MG 1 tablet at bedtime Oral Once a day 05/27/2023 QUEtiapine Fumarate 25 MG 1 tablet at bedtime Orally Once a day for 30 days 01/26/2024 taking 50 mg at nigh t every night, occasionally another 25 mg as needed Treatment Notes Assessment Notes Major depressive disorder, recurrent, mi ld taking 50 mg at night every night, occasionally another 25 mg as needed Next Appt Details Provider Name:Angelina adams, 06/02/2024 11:00:00 AM, [address], [facility] [address], [place], [address], Progress Notes * CHAPIN PHELANOB: 5 (58 yo F)Acc No.[id number]:01/26/2024 Patient: IBETH SOTO :1965 A ge:58 Y S ex:Female Address:[address] [place] [address], [place], [address] * Refills Continue QUEtiapine Fumarate Tablet, 50 MG, Oral, 1 tablet at bedtime, Once a day Start QUEtiapine Fumarate Tablet, 25 MG, Orally, 30, 1 tablet at bedtime, Once a day, 30 days, Refills=1 Subjective: * Chief Complaints: * Q UEtiapine * Medical History: * Surgical History: * Hospitalization/Major Diagno stic Procedure: * Medications: Objective: * Vitals: * Physical Examination: Assessment: * Assessment: 1. M ajor depressive disorder, recurrent, mild - F33.0 (Primary) 2 . P rimary insomnia - F51.01 Plan: * Treatment: * Procedure Codes: * true * Date: Generated for [place] hinds/Sorin/Brisaitting on: 0 04/12/2024 11:43 AM CORSETS SALESPERSON
[2024-04-12 11:52] LABS: Hepatitis B Surface Antigen Negative (Negative)
[2024-04-12 12:01] LABS: HAV RESULT Negative (Negative); Hepatitis B Core IgM Result Negative (Negative)
[2024-04-12 12:07] LABS: Hepatitis C Virus Antibody Negative (Negative)
== END 2024-04-12 10:07 | disposition home or self-care (01) ==
LOC: ANHLAB 10:07
PROVIDERS: Student in an Organized Health Care Education/Training Program; PCP Family Medicine; Visit Provider Family Medicine
DX: R74.8 Abnormal levels of other serum enzymes (principal); J06.9 Acute upper respiratory infection, unspecified
CPT/HCPCS: 36415; 80074; 80076; 87637

== ENCOUNTER 2024-12-06 13:13 | Outpatient (CLI) | payer OTHER, SELFPAY ==
--- NOTE | ~2024-12-06 | MM_ITS ---
EXAMINATION: MM screening chepe BI w олег HISTORY: Screening TECHNIQUE: Craniocaudal and mediolateral oblique 3-D tomosynthesis images were obtained and synthetic 2-D images were generated. CAD analysis was submitted and interpreted. COMPARISON: Comparison to multiple prior studies sequentially, with oldest reviewed study dated 10/29/2018. BREAST PARENCHYMAL COMPOSITION: Dense: The breasts are heterogeneously dense, which may obscure small masses FINDINGS: There is distortion of both breasts consistent with prior breast reduction surgery. There is no evidence of suspicious mass, calcification, or architectural distortion to suggest malignancy in either breast. There has been no suspicious interval change. IMPRESSION: 1. No mammographic evidence of malignancy. 2. Recommend routine screening mammography in one year. BI-RADS Category 1: Negative Reviewed, dictated and finalized at location O.
== END 2024-12-06 13:14 | disposition home or self-care (01) ==
LOC: MICIMG 13:14
PROVIDERS: PCP Student in an Organized Health Care Education/Training Program; Visit Provider Student in an Organized Health Care Education/Training Program
DX: Z12.31 Encounter for screening mammogram for malignant neoplasm of breast (principal)
CPT/HCPCS: 77063; 77067

== ENCOUNTER 2024-12-28 14:31 | Emergency (ER) | payer OTHER, SELFPAY ==
--- NOTE | ~2024-12-28 | CT_ITS ---
CT abdomen pelvis w con INDICATION:lower abd pain, uti . COMPARISON: None. TECHNIQUE: Axial images of the abdomen and pelvis were obtained following infusion of 100 mL Isovue 300. Dose optimization technique was utilized. FINDINGS: The lung bases are clear. Fatty infiltration of the liver is noted. No intrahepatic mass or ductal dilatation is evident. The gallbladder is unremarkable. The pancreas and spleen are normal in appearance. The adrenal glands are symmetric in size. The kidneys demonstrate symmetric uptake and excretion of contrast. No cystic mass is evident. There is no solid mass. There is no hydronephrosis. Evaluation of the stomach and bowel loops are limited due to lack of oral contrast. Moderate fecal load is consistent with constipation. The bladder and rectum are normal. No free intraperitoneal fluid or air is evident. There is no significant retroperitoneal lymphadenopathy. The aorta, visceral vessels and renal arteries demonstrate normal caliber and patency. The lower thoracic and lumbar vertebrae are in normal alignment. IMPRESSION: No acute abnormality is noted in the abdomen and pelvis. Hepatic steatosis. Constipation All CT scans at this facility are performed using low dose modulation techniques as appropriate to perform exam including the following: automated exposure control; use of iterative reconstruction technique; adjustment of the mA and/or kV according to patient size (this includes techniques or standardized protocols for targeted exams where dose is matched to indication/reason for exam). Reviewed, dictated and finalized at location S. IPLE SPINDLE SCREW MACHINE OPERATOR IMPRESSION: No acute abnormality is noted in the abdomen and pelvis. Hepatic steatosis. Constipation All CT scans at this facility are performed using low dose modulation techniqu es as appropriate to perform exam including the following: automated exposure c ontrol; use of iterative reconstruction technique; adjustment of the mA and/or kV according to patient size (this includes techniques or standardized protocol s for targeted exams where dose is matched to indication/reason for exam).
[2024-12-28 14:32] VITALS: BP 148/75; PULSE 60; RESP 16; TEMP 36.4; O2SAT 98
--- OUTSIDE RECORDS SUMMARY | 2024-12-28 15:27 | XMS_ITS | Encounter Summary ---
Author Organization [facility] Address [address] [place] [address] Care Team Providers Care Underground Drill Operator Name Role Phone Yandel Iqbal MD Primary Care Provider [phone] Encounter Details Date Type Department Care Team (Late st Contact Info) Description 10/21/2023 Lab Requisition [facility] - DermPath Lab [address] [place] [address] Tal Aldana MD [address] [place], [place] [id number] Social History Tobacco Use Types Packs/Day Years Used Date Smoking Tobacco: Never Assessed Comments Unknown Sex and Gender Information Value Date Recorded Sex Assigned at Not on file Legal Sex Female 6:09 AM CDT Gender Identity Not on file Sexual Orientation Not on file documented as of this encounter Plan of Treatment Not on file documented as of this encounter Procedures Procedure Name Priority Date/Time Associated Diagnosis Comments DERMATOPATHOLOGY Routine 10/20/2023 12:0 0 AM CDT documented in this encounter Results * DERMATOPATHOLOGY (10/20/2023 12:00 AM CDT) Case Report Dermatopathology Report Case: [id number] Authorizing Provider: Tal Aldana MD Collected: 10/20/2023 12:00 AM Ordering Location: [facility] - Received: 10/22/2023 06:49 AM DermPath Lab Pathologist: Tash Alcantara MD Specimen: Skin, left neck 4:00 PM CDT DERMATOPATHOLOGY LABORATORY Final Diagnosis Specimen A. SKIN, left neck: SQUAMOUS CELL CARCINOMA, WELL DIFFERENTIATED, LIKELY ARISING WITHIN A VIRAL VERRUCA (C44.42) NOT PRESENT AT MARGIN 4:00 PM CDT DERMATOPATHOLOGY LABORATORY at 1559 CDT Clinical History Sccis vs SCC 4:00 PM T DERMATOPATHOLOGY LABORATORY Gross Description Specimen [...] cassette 2. Jar 0. 4 4:00 PM T DERMATOPATHOLOGY LABORATORY Microscopic Description Specimen A. SKIN, left neck: Sections show digitated epidermal hyperplasia with hypergranulosis in the dells between papillations, as well as a proliferation of atypical keratinocytes that extends into the underlying dermis. This lesion is not present at the margin of the specimen. 4:00 PM T DERMATOPATHOLOGY LABORATORY Disclaimer An external and internal positive and negative controls are appropriate for the histochemical, immunohistochemical and immunofluorescence stain(s) in this case (if any), except where stated explicitly. The performance characteristics of the stain(s) cited in this report were developed and its performance characteristic determined by the Dermatopathology Laboratory at [facility], directed by Dr. Lionel Singh. These tests need not be, and therefore are not, approved by the [place] Food and Drug Administration. The tests are used for clinical purposes. Billing Codes Specimen Charges Stain Charges 23161 1 4:00 PM CDT DERMATOPATHOLOGY LABORATORY Embedded Images 4:00 PM CDT DERMATOPATHOLOGY LABORATORY Pathology/Cytolog y TISSUE SPECIMEN FROM SKIN / Unknown 10/20/2023 10/22/2023 6:49 AM CDT Tal Aldana MD LAB - PATHOLOGY/CYTOLOGY ORD ERABLES Final Result DERMATOPATHOLOGY LABORATORY [facility] - Department of Dermatology [address], [address] [phone] documented in this encounter Visit Diagnoses Not on filedocumented in this encounter Care Teams Underground Drill Operator Relationship Specialty Start Date End Date Yandel Iqbal MD [address] [place] [address] PCP - General 05/05/22 documented as of this encounter
--- OUTSIDE RECORDS SUMMARY | 2024-12-28 15:27 | XMS_ITS | Encounter Summary ---
Author Organization [facility] Address [address] [place] [address] Care Team Providers Care Principal Android Developer Name Role Phone Yandel Iqbal MD Primary Care Provider [phone] Encounter Details Date Type Department Care Team (Late st Contact Info) Description 12/07/2023 Lab Requisition [facility] - DermPath Lab [address] [place] [address] Tal Aldana MD [address] [place] [address] Social History Tobacco Use Types Packs/Day Years [...] AM CDT) Case Report Dermatopathology Report Case: [id number] Authorizing Provider: Tal Aldana MD Collected: 12/04/2023 12:00 AM Ordering Location: [facility] - Received: 12/07/2023 01:54 PM DermPath Lab [...] NECROSIS SUGGESTIVE OF EXCORIATION (L98.499) 12:55 PM CDT DERMATOPATHOLOGY LABORATORY at [address] CDT Clinical History A-C: R/O SCC vs BCC vs Ramos's 12:55 PM CDT DERMATOPATHOLOGY LABORATORY Gross Description Specimen [...] measuring 7x6x1 mm. Jar 0. 12:55 PM CDT DERMATOPATHOLOGY LABORATORY Microscopic Description Specimen [...] is fibrin at the base. 12:55 PM CDT DERMATOPATHOLOGY LABORATORY Disclaimer An external and internal positive and negative controls are appropriate for the histochemical, immunohistochemical and immunofluorescence stain(s) in this case (if any), except where stated explicitly. The performance characteristics of the stain(s) cited in this report were developed and its performance characteristic determined by the Dermatopathology Laboratory at [facility], directed by Dr. Lionel Singh. These tests need not be, and therefore are not, approved by the [place] Food and Drug Administration. The tests are used for clinical purposes. Billing Codes Specimen Charges Stain Charges 83065 94863 35778 1 1 1 12:55 PM CDT DERMATOPATHOLOGY LABORATORY Embedded Images 12:55 PM CDT DERMATOPATHOLOGY LABORATORY Pathology/Cytology TISSUE SPECIMEN FROM SKIN / Unknown 12/04/2023 12/07/2023 1:54 PM CDT Miscellaneous samples (specimen) TISSUE SPECIMEN FROM SKIN / Unknown 12/04/2023 12/07/2023 1:54 PM CDT Miscellaneous samples (specimen) TISSUE SPECIMEN FROM SKIN / Unknown 12/04/2023 12/07/2023 1:54 PM CDT Tal Aldana MD LAB - PATHOLOGY/CYTOLOGY ORD ERABLES Final Result DERMATOPATHOLOGY LABORATORY [facility] - Department of Dermatology [facility] Medicine [address] [place] [address], [address] [phone] documented in this encounter Visit Diagnoses Not on filedocumented in this encounter Care Teams Principal Android Developer Relationship Specialty Start Date End Date Yandel Iqbal MD [address] [place] [address] PCP - General 05/05/22 documented as of this encounter
--- OUTSIDE RECORDS SUMMARY | 2024-12-28 15:27 | XMS_ITS | Clinical Summary ---
Author Organization [facility] [employer] Address [address] [facility] [place] [address] Care Team Providers Care Rip Tailer Name Role Phone Yandel Iqbal MD Primary Care Provider [phone] Source Comments [facility] [employer],non-owned Affiliates and Associated Physician Practices is amultiple site organization consisting of ambulatory clinics and hospital sitesin [place], [place], [place] and [place]. This disclosure is being madepursuant to the Care Everywhere program and may not contain all information available regarding this patient. Last updated 17.[facility] Social History Tobacco Use Types Packs/Day Years [...] SCREENING 1964 LIPID TESTING 1964 MAMMOGRAM 1964 HIV SCREENING 10/31/1979 HEPATITIS C SCREENING 10/26/1982 DTAP/TDAP/TD VACCINES (1 - Tdap) 10/31/1983 PAP SMEAR 1985 PNEUMOCOCCAL VACCINE 50+ (1 of 1 - PCV) 2014 ZOSTER VACCINE (1 of 2) 2014 DEPRESSION SCREENING 02/17/2024 COVID-19 VACCINE (1 - 2023-2 5 season) 2024 INFLUENZA VACCINE (#1) 2024 Respiratory Syncytial Virus (RSV) Vaccine Pt: or over 60 yrs (1 - 1-dose 75+ series) 10/31/2039 HEPATITIS B VACCINE Aged Out No longe r eligible based on patient's age to complete this topic HIB VACCINE Aged Out No longer eligi ble based on patient's age to complete this topic HPV VACCINE Aged Out No longer eligi ble based on patient's age to complete this topic MENINGOCOCCAL (Group B) VACC INE SHARED DECISION-MAKING Aged Out No longer eligibl e based on patient's age to complete this topic MENINGOCOCCAL GROUPS A/C/Y/W VACCINE Aged Out No longer eligible b ased on patient's age to complete this topic Insurance HEALTH [employer]ARE [employer] Care Teams Rip Tailer Relationship Specialty Start Date End Date Yandel Iqbal MD [address] [place] [address] PCP - General 05/05/22
--- OUTSIDE RECORDS SUMMARY | 2024-12-28 15:27 | XMS_ITS | Patient Health Record ---
Author Organization [facility] [employer] [facility] Address [address] [place] [address] Care Team Providers Care Design Agent Name Role Phone America Oropeza MD Primary Care Provider Angelina Montez Unavailable [phone] Allergies Allergen (clinical drug ingredient) Drug/Non Drug Allergy documented on EMR Reaction Allergy Type Onset Date Status Septra Unknown Drug Allergy 05/27/2023 Active Reason For Referral No Information Medications Medication SIG (Take, Route, Frequency, Duration) Notes Start Date End Date Status Levothyroxine Sodium 88 MCG Tablet Oral 05/27/2023 Active Naratriptan HCl 2.5 MG Tablet Oral 05/27/2023 Active DayVigo 10 MG Tablet TAKE 1 TABLET BY MOUTH DAILY AT BEDTIME NEEDED; Duration: 30 12/19/2024 Active QUEtiapine Fumarate 50 MG Tablet 1 tablet at bedtime Oral Once a day; Duration: 30 days Active QUEtiapine Fumarate 25 MG Tablet 1 tablet at bedtime Orally Once a day; Duration: 30 days As needed Active QUEtiapine Fumarate 25 MG Tablet 1 tablet at bedtime Orally Once a day; Duration: 30 days Not-Taking INDAPAMIDE 2.5 MG TABS *Reorder from [employer] for eRx and Interaction Alerts* 05/27/2023 Active Potassium Chloride ER 20 MEQ Tablet Extended Release Oral 05/27/2023 Active Atorvastatin Calcium 20 MG Tablet Oral 05/27/2023 Active Immunizations Vaccine Route Administration Date Status Comme nts Novel [id number], preservative free Unknown 11/20/2019 Administered Pfizer Biontech Covid-19 Vac cine 2nd dose Unknown 05/24/2020 Administered Pfizer Biontech Covid-19 Vac cine 2nd dose Unknown 06/14/2020 Administered Tdap Unknown 10/11/2009 Administered Social History Tobacco Use: Social History Observation Description Date Details (start date - stop date) Former Smoker NA - NA Sex Assigned At : Social History Observation Description Sex Assigned At Female Social History Social History Social Info Question Answer Notes Household: Marital Status: Number of Adults in household: 2 Drug/Alcohol: Social Info Question Answer Notes AUDIT-C (Standard) Did you have a drink containing alcohol in the past year? Yes How often did you have a drink containing alcohol in the past year? Monthly or less (1 point) Tobacco Use: Social Info Question Answer Notes Tobacco Control (Standard) Tobacco use: Former smoker How long has it been since you last smoked? 1-5 years Additional Details Category Social Info Options Details Migrated Social History Migrated Social History Alcohol Intake: Occasional 12/20/2019,Tobacco Years: Former smoker 04/22/2022 Problems Problem Type SNOMED Code ICD Code Onset Dates Problem Status W/U Status Risk Notes Problem Hypothyroidism (14557544) Hypothyroidism, unspecified (E03.9) 4 Active confirmed Problem Mild recurrent major depression (63259614) Major depressive disorder, recurrent, mild (F33.0) 4 Active confirmed Problem Generalized anxiety disorder (97920874) Generalized anxiety disorder (F41.1) 4 Active confirmed Problem Primary insomnia (2430287) Primary insomnia (F51.01) 4 Active confirmed Problem Recurrent major depression (42723161) Depression, major, recurrent, in remission (F33.40) Active confirmed Vital Signs Heart Rate 70 /min 10/04/2024 Height-cm 172.72 cm 10/04/2024 Blood pressure diastolic 78 mm Hg 10/04/2024 Weight-kg 75.02 kg 10/04/2024 Height 68.00 in 10/04/2024 Blood pressure systolic 120 mm Hg 10/04/2024 Weight 165.4 lbs 10/04/2024 BMI 25.15 kg/m2 10/04/2024 Encounters Encounter Location Date Provider Diagnosis [facility] [email or web address] [facility] [address] [address] 06/02/2024 Angelina Singh Major depressive disorder, recurrent, mild F33.0 ; Primary insomnia F51.01 ; Generalized anxiety disorder F41.1 ; Encounter for screening for cardiovascular disorders Z13.6 and Encounter for screening for depression Z13.31 [place] [id number] [address] 10/04/2024 Angelina Singh Primary insomnia F51.01 ; Depression, major, recurrent, in remission F33.40 and Generalized anxiety disorder F41.1 [place] [address] [address] 12/19/2024 Angelina Singh [place] [address] [address] 01/26/2024 Angelina Singh Major depressive disorder, recurrent, mild F33.0 and Primary insomnia F51.01 [place] [address] [address] 05/26/2024 Angelina Singh Primary insomnia F51.01 [place] [address] [address] 06/29/2024 Angelina Singh [place] [address] [address] 07/01/2024 Angelina Singh Major depressive disorder, recurrent, mild F33.0 [place] [address] [address] 09/13/2024 Angelina Singh Primary insomnia F51.01 [place] [address] [facility] [address] [address] 03/23/2024 Angelina Singh Assessments Encounter Date Diagnosis (ICD Code) Assessment Notes Treatment Notes Treatment Clinical Notes Section Notes 01/26/2024 Major depressive disorder, recurrent, mild (ICD-10 - F33.0) taking 50 mg at night every night, occasionally another 25 mg as needed 01/26/2024 Primary insomnia (ICD-10 - F51.01) 05/26/2024 Primary insomnia (ICD-10 - F51.01) 06/02/2024 Major depressive disorder, recurrent, mild (ICD-10 - F33.0) 06/02/2024 Primary insomnia (ICD-10 - F51.01) 07/01/2024 Major depressive disorder, recurrent, mild (ICD-10 - F33.0) 09/13/2024 Primary insomnia (ICD-10 - F51.01) 10/04/2024 Primary insomnia (ICD-10 - F51.01) 10/04/2024 Depression, major, recurrent, in remission (ICD-10 - F33.40) 10/04/2024 Generalized anxiety disorder (ICD-10 - F41.1) 06/02/2024 Generalized anxiety disorder (ICD-10 - F41.1) 06/02/2024 Encounter for screening for cardiovascular disorders (ICD-10 - Z13.6) 06/02/2024 Encounter for screening for depression (ICD-10 - Z13.31) 06/02/2024 Other Ibeth Phelan, a female patient with a history of anxiety and sleep issues, presents for follow-up regarding her current medication regimen of quetiapine and Dayvigo, expressing concerns about medication costs and weight gain. Anxiety Assessment: Patient reports that quetiapine has been helpful in managing her anxiety, which was originally treated with Xanax prescribed by a previous physician. The low dose of quetiapine provides comfort and stability, particularly during stressful events. Patient transitioned from Xanax to quetiapine to avoid benzodiazepine use. Plan: - Continue quetiapine 50 mg PO at bedtime for anxiety management - Discussed risks, benefits, and alternatives of continuing quetiapine, including potential for weight gain - Patient expressed understanding and desire to continue current regimen Insomnia Assessment: Patient uses Dayvigo 10 mg at bedtime as needed for sleep. The medication appears to be effective when used, but the patient does not take it regularly. Plan: - Continue Dayvigo 10 mg PO at bedtime as needed for sleep Medication side effects - Weight gain Assessment: Patient reports difficulty losing weight, which she attributes to medication side effects. Traditional weight loss methods have been ineffective, with only 3 pounds lost over 3 months on [employer]. Patient reports exercising regularly. Plan: - Encouraged continuation of regular exercise routine - Discuss weight management strategies at next follow-up appointment Recent medical history Assessment: Patient reports recent illnesses in February, including COVID-19, urinary tract infection, and a prolonged sinus infection lasting approximately 8 weeks. Plan: - No acute intervention required at this time as infections have resolved - Monitor for any lingering symptoms or complications at future visits 10/04/2024 Other Ibeth Phelan, female, presents with a history of anxiety and sleep issues, currently tapering off Seroquel and experiencing potential side effects. Seroquel Taper and Side Effects Assessment: Patient is currently tapering Seroquel, reduced to 25 mg nightly from an unspecified higher dose. Reports weigyht gain, potentially elevated prolactin levels and breast growth, likely medication-induce d side effects. Sleep and mood have remained stable during the taper, with only transient headaches in the first two days of dose reduction. Patient was initially prescribed Seroquel in 2019 for sleep issues related to a period of personal tragedy. 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 Plan: - Initiate buspirone for anxiety management - Starting dose: 15 mg twice daily, with option for third dose as needed, may try half dose - Educate patient on medication regimen and potential side effects - Monitor for efficacy and tolerability of buspirone Medical Decision Making Ibeth Phelan is a female patient with a history of anxiety and sleep issues, currently tapering off Seroquel and experiencing high prolactin levels. The patient's Seroquel dose has been reduced to 25mg nightly, with minimal impact on sleep and mood. The clinician is considering the patient's prolactin levels and associated symptoms (breast growth, nipple pain) as likely side effects of the medication. Given the patient's improved mood and stable sleep with dose reduction, continued tapering is deemed appropriate. The clinician is weighing the benefits of Seroquel for mood and sleep against the side effects, particularly the elevated prolactin levels. 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 The decision to try buspirone is based on its efficacy for anxiety and generally good tolerability profile. Plan Of Treatment No Information Insurance Providers Payer Name Payer Address Payer Phone Subscriber Number Group Number Insured Name Patient Relationship to Insured Coverage Start Date Coverage End Date Umr [address] [address] [place] [address] [id number] YVON PHELAN Spouse - patient is the spouse of the insured Medical (General) History Medical History History ICD Code Problems: Generalized anxiety disorder Hyponatremia Hypothyroidism Long-term drug therapy Mild recurrent major depression Primary insomnia , Surgical History Surgery Date(Month/Year) Unlisted procedure breast () Hysterectomy/revise vagina (23824) Endometr ablate thermal (87405) Hysterectomy (66549) 05/02/2016 Endometrial ablation (60527) 07/05/2006 Breast surgery (69839) 09/05/2015
--- NOTE | 2024-12-28 15:46 | ED.GENADULT ---
HPI - General Adult General Chief complaint: Unspecified <Tash Blas PA-C - Last Filed: 12/28/24 19:14> Stated complaint: dehyrated <Tash Blas PA-C - Last Filed: 12/28/24 19:14> Time Seen by Provider: 12/28/24 15:46 <Tash Blas PA-C - Last Filed: 12/28/24 19:14> Focused HPI: This is a 59 year old female that presents to the ER for urinary frequency. Reports some dysuria. Ongoing since last night. Reports she feels dizzy, has chills, weakness, nausea. GENERAL: Well-appearing, well-nourished, and in no acute distress. HEAD: Normocephalic, atraumatic. CHEST: Clear to auscultation. ?No respiratory distress. HEART: Regular rate and rhythm.? NEURO: ?Alert and oriented x3. Patient screened in triage and initial orders placed.? ?Additional care and disposition to be based upon?diagnostic testing and treatment. <Tash Blas PA-C - Last Filed: 12/28/24 19:14> Focused HPI: This is a 59 year old female that presents to the ER for urinary frequency. Reports some dysuria. Ongoing since last night. Reports she feels dizzy, has chills, weakness, nausea. GENERAL: Well-appearing, well-nourished, and in no acute distress. HEAD: Normocephalic, atraumatic. CHEST: Clear to auscultation. ?No respiratory distress. HEART: Regular rate and rhythm.? NEURO: ?Alert and oriented x3. Patient screened in triage and initial orders placed.? ?Additional care and disposition to be based upon?diagnostic testing and treatment. <Krysta Mcmanus PA-C - Last Filed: 12/28/24 19:35> Source: patient <KATELIN Crowe Last Filed: 12/28/24 19:35> Mode of arrival: ambulatory <KATELIN Crowe Last Filed: 12/28/24 19:35> Limitations: no limitations <KATELIN Crowe Last Filed: 12/28/24 19:35> History of Present Illness HPI narrative: Agree with above HPI. Patient reports she feels as though she is dehydrated. She has been drinking lots of fluids today as well as Gatorade. Also reports she took 3 20meEq potassium supplements today. Endorses generalized weakness, fatigue, lower abd pain. Denies fevers. Denies vomiting, diarrhea. <Krysta Mcmanus PA-C - Last Filed: 12/28/24 19:35> Related Data Home medications: Home Medications ?Medication ?Instructions ?Recorded ?Confirmed ?Last Taken ?Type cetirizine 10 mg tablet (Zyrtec) 10 mg PO DAILY 02/24/19 04/14/24 Unknown History Vitamin C 1,000 mg PO DAILY 05/31/21 04/14/24 05/30/21 History quetiapine 25 mg tablet 50 mg PO HS 07/21/22 04/14/24 Unknown History <Tash Blas PA-C - Last Filed: 12/28/24 19:14> Allergies/adverse reactions: Allergies Allergy/AdvReac Type Severity Reaction Status Date / Time Sulfa (Sulfonamide Allergy Intermediate RASH Verified 04/14/24 10:26 Antibiotics) <Tash Blas PA-C - Last Filed: 12/28/24 19:14> Review of Systems Review of Systems: All systems reviewed & are unremarkable except as noted in HPI. <Krysta Mcmanus PA-C - Last Filed: 12/28/24 19:35> All systems reviewed & are unremarkable except as noted in HPI and below <Krysta Mcmanus PA-C - Last Filed: 12/28/24 19:35> FORMERLY [facility], [facility] Past Medical History Medical History: Medical History PONV (postoperative nausea and vomiting) Depression Diuretic-induced hypokalemia Mixed hyperlipidemia Essential hypertension Hypothyroidism determined by thyroid function test PTSD (post-traumatic stress disorder) Migraines <Tash Blas PA-C - Last Filed: 12/28/24 19:14> Surgical History Surgical History: Surgical History History of bunionectomy of right great toe History of hysterectomy History of tonsillectomy History of bilateral breast reduction surgery Status post hysteroscopic surgical removal of uterine septum <Tash Blas PA-C - Last Filed: 12/28/24 19:14> Family History Family History: Family History Sibling Family history of blood dyscrasia Father Family history of pulmonary embolism Mother Family history of pulmonary embolism <Tash Blas PA-C - Last Filed: 12/28/24 19:14> Social History Social History: Social History Years smoked: 2 Tobacco type: cigarettes Second hand tobacco smoke exposure: No Smoking end date: 02/16/21 Alcohol intake: current Drinks per week: 4 Alcohol use details: socially Substance use: never Lack of Transportation: No Lack of Food: Never True Current Housing: I Have Housing Concerned About Future Housing: Decline to Answer Difficulty Paying Gas/Electric Bills: No Difficulty Paying for Meds: No Currently Unemployed: No Education: Master's Degree or Higher Difficulty w/ Childcare or Family Care: No Living arrangements: with family Occupation/Education: occupation Gender identity (if verbalized by the patient): Female Sexual Orientation (if Verbalized by the Patient): Straight or Heterosexual Spiritual care concerns: No Agree to blood products: Yes <Tash Blas PA-C - Last Filed: 12/28/24 19:14> Exam Narrative: GENERAL: Mildly frail appearing, well-nourished, non-toxic, in no acute distress. HEAD: Normocephalic, atraumatic. RESPIRATORY: Airway patent, respirations nonlabored. Clear to auscultation bilaterally, no rales, rhonchi, wheezing. CARDIOVASCULAR: Regular rate and rhythm without murmurs, rubs, or gallops. ABDOMINAL: Soft, mild tenderness to palpation throughout suprapubic region, R lower abdomen, nondistended. Normoactive BS. MUSCULOSKELETAL: Moves all extremities. No gross deformities. SKIN: Warm, dry, normal color. NEURO: A&O X3. Speech clear. Cranial nerves II-XII grossly intact. Steady gait. No ataxic movements. No focal deficits. PSYCHIATRIC: Appropriate mood and affect. Normal interaction. <Krysta Mcmanus PA-C - Last Filed: 12/28/24 19:35> Course Vital Signs Vital signs: Vital Signs Temperature 97.6 F 12/28/24 14:32 Pulse Rate 60 12/28/24 14:32 Respiratory Rate 16 12/28/24 14:32 Blood Pressure 148/75 H 12/28/24 14:32 Pulse Oximetry 98 12/28/24 14:32 Temperature 97.6 F 12/28/24 14:32 Pulse Rate 60 12/28/24 14:32 Respiratory Rate 16 12/28/24 14:32 Blood Pressure 148/75 H 12/28/24 14:32 Pulse Oximetry 98 12/28/24 14:32 <Tash Blas PA-C - Last Filed: 12/28/24 19:14> Vital Signs Temperature 97.6 F 12/28/24 14:32 Pulse Rate 60 12/28/24 14:32 Respiratory Rate 16 12/28/24 14:32 Blood Pressure 148/75 H 12/28/24 14:32 Pulse Oximetry 98 12/28/24 14:32 Temperature 97.6 F 12/28/24 14:32 Pulse Rate 60 12/28/24 14:32 Respiratory Rate 16 12/28/24 14:32 Blood Pressure 148/75 H 12/28/24 14:32 Pulse Oximetry 98 12/28/24 14:32 <Krysta Mcmanus PA-C - Last Filed: 12/28/24 19:35> Medical Decision Making MDM Narrative Medical decision making narrative: Patient presented to ED w/ report of weakness, fatigue, concerned for dehydration, urinary frequency. Vital signs are stable upon arrival. Patient in no acute distress. Cbc without leukocytosis or anemia. CMP with sodium of 131, chloride 95. Otherwise stable electrolytes. Stable kidney function. Mag within normal range. Normal LFTs. UA with 2+ leuk esterase, 6-10 WBC. No ketones. Sent for culture. Will treat given acute symptomatology. Viral swabs are negative. CT scan of abdomen /pelvis was obtained and without acute findings. Does show evidence of mild constipation. Do not feel this is contributing to patient's sx's today. Patient given 1L fluid bolus in the ED. On reeval, she is feeling improved. She states she wants to go home. Discussed overall reassuring workup. Advised patient to stay hydrated at home. Discussed diagnosis of UTI, possibility of viral syndrome. Recommended follow-up with PCP For further evaluation and urine culture results. Given return precautions. She is in agreement with plan. Discharged in stable condition. <KATELIN Crowe Last Filed: 12/28/24 19:35> Medical Records Medical records reviewed: Yes I reviewed the external patient's medical records. <KATELIN Crowe Last Filed: 12/28/24 19:35> Vital Signs Vital Signs: Vital Signs Temperature 97.6 F 12/28/24 14:32 Pulse Rate 60 12/28/24 14:32 Respiratory Rate 16 12/28/24 14:32 Blood Pressure 148/75 H 12/28/24 14:32 Pulse Oximetry 98 12/28/24 14:32 Temperature 97.6 F 12/28/24 14:32 Pulse Rate 60 12/28/24 14:32 Respiratory Rate 16 12/28/24 14:32 Blood Pressure 148/75 H 12/28/24 14:32 Pulse Oximetry 98 12/28/24 14:32 <Tash Blas PA-C - Last Filed: 12/28/24 19:14> Vital Signs Temperature 97.6 F 12/28/24 14:32 Pulse Rate 60 12/28/24 14:32 Respiratory Rate 16 12/28/24 14:32 Blood Pressure 148/75 H 12/28/24 14:32 Pulse Oximetry 98 12/28/24 14:32 Temperature 97.6 F 12/28/24 14:32 Pulse Rate 60 12/28/24 14:32 Respiratory Rate 16 12/28/24 14:32 Blood Pressure 148/75 H 12/28/24 14:32 Pulse Oximetry 98 12/28/24 14:32 <KATELIN Crowe Last Filed: 12/28/24 19:35> Lab Data Lab results reviewed: Yes I reviewed the patient's lab results. <KATELIN Crowe Last Filed: 12/28/24 19:35> Result diagrams: 12/28/24 17:31 12/28/24 17:31 <Tash Blas PA-C - Last Filed: 12/28/24 19:14> Labs: Lab Results 12/28/24 12/28/24 Range/Units 16:01 17:31 WBC 5.6 (4.5-10.0) K/mm3 RBC 5.04 (4.2-5.4) M/mm3 Hgb 14.0 (12.0-15.0) g/dL Hct 40.4 (37.0-47.0) % MCV 80.2 (80-100) fl MCH 27.8 (26-34) pg MCHC 34.7 (32-36) g/dl RDW 12.1 (11.5-14.5) % Plt Count 155 (150-375) k/mm3 MPV 10.4 (7.4-10.4) fl Immature Gran % (Auto) 0.9 H (0-0.5) % Neut % (Auto) 59.4 (45.5-73.1) % Lymph % (Auto) 26.1 (18.3-44.2) % Bryan % (Auto) 7.7 (2.6-8.5) % Eos % (Auto) 5.4 H (0-4.4) % Baso % (Auto) 0.5 (0.2-1.2) % Lymph # (Auto) 1.45 (0.9-3.2) K/mm3 Bryan # (Auto) 0.4 (0.1-0.6) K/mm3 Eos # (Auto) 0.3 (0-0.3) K/mm3 Baso # (Auto) 0.0 (0.0-0.1) K/mm3 Abs Immat Gran (auto) 0.05 H (0.00-0.031) K/mm3 Absolute Neuts (auto) 3.3 (1.3-6.7) K/mm3 Absolute Nucleated RBC 0.000 (0.0-0.012) K/mm3 Nucleated RBC % 0.0 (0.0-0.2) % Sodium 131 L (137-145) mmol/L Potassium 3.7 (3.4-5.0) mmol/L Chloride 95 L (98-107) mmol/L Carbon Dioxide 26 (22-30) mmol/L Anion Gap 10 (4-12) mmol/L BUN 11 D (7-17) mg/dL Creatinine 0.61 L (0.7-1.0) mg/dL Estim Creat Clear Calc 84 ml/min Estimated GFR > 60 (59 - ) Glucose 88 (65-110) mg/dL Calcium 9.3 (8.4-10.2) mg/dL Magnesium 2.0 (1.6-2.3) mg/dL Total Bilirubin 1.1 (0.2-1.3) mg/dL AST 39 H (14-36) U/L ALT 29 (6-35) U/L Alkaline Phosphatase 82 (38-126) U/L Total Protein 8.0 (6.3-8.2) g/dL Albumin 4.7 (3.5-5.1) g/dL Urine Color Yellow (Yellow) Urine Appearance Clear (Clear) Urine pH 8.0 (5.0-9.0) Ur Specific [place] 1.003 (1.001-1.035) Urine Protein Negative (Negative) mg/dL Urine Glucose (UA) Negative (Negative) mg/dL Urine Ketones Negative (Negative) mg/dL Ur Blood (Man) Negative (Negative) Urine Nitrate Negative (Negative) Urine Bilirubin Negative (Negative) Urine Urobilinogen 0.2 (<2.0) mg/dL Leukocyte Esterase Rfl 2+ H (Negative) SONYA/UL Urine RBC 0-2 (0-2) /hpf Urine WBC 6-10 H (0-3) /hpf Ur Squamous Epith Cells None seen (Few) /hpf Urine Bacteria None seen /hpf Urine Casts 0-2 Influenza A (RT-PCR) Negative (Negative) Influenza B (RT-PCR) Negative (Negative) RSV (RT-PCR) Negative (Negative) SARS-CoV-2 RNA (RT-PCR) Negative (Negative) <Tash Blas PA-C - Last Filed: 12/28/24 19:14> Lab Results 12/28/24 12/28/24 Range/Units 16:01 17:31 WBC 5.6 (4.5-10.0) K/mm3 RBC 5.04 (4.2-5.4) M/mm3 Hgb 14.0 (12.0-15.0) g/dL Hct 40.4 (37.0-47.0) % MCV 80.2 (80-100) fl MCH 27.8 (26-34) pg MCHC 34.7 (32-36) g/dl RDW 12.1 (11.5-14.5) % Plt Count 155 (150-375) k/mm3 MPV 10.4 (7.4-10.4) fl Immature Gran % (Auto) 0.9 H (0-0.5) % Neut % (Auto) 59.4 (45.5-73.1) % Lymph % (Auto) 26.1 (18.3-44.2) % Bryan % (Auto) 7.7 (2.6-8.5) % Eos % (Auto) 5.4 H (0-4.4) % Baso % (Auto) 0.5 (0.2-1.2) % Lymph # (Auto) 1.45 (0.9-3.2) K/mm3 Bryan # (Auto) 0.4 (0.1-0.6) K/mm3 Eos # (Auto) 0.3 (0-0.3) K/mm3 Baso # (Auto) 0.0 (0.0-0.1) K/mm3 Abs Immat Gran (auto) 0.05 H (0.00-0.031) K/mm3 Absolute Neuts (auto) 3.3 (1.3-6.7) K/mm3 Absolute Nucleated RBC 0.000 (0.0-0.012) K/mm3 Nucleated RBC % 0.0 (0.0-0.2) % Sodium 131 L (137-145) mmol/L Potassium 3.7 (3.4-5.0) mmol/L Chloride 95 L (98-107) mmol/L Carbon Dioxide 26 (22-30) mmol/L Anion Gap 10 (4-12) mmol/L BUN 11 D (7-17) mg/dL Creatinine 0.61 L (0.7-1.0) mg/dL Estim Creat Clear Calc 84 ml/min Estimated GFR > 60 (59 - ) Glucose 88 (65-110) mg/dL Calcium 9.3 (8.4-10.2) mg/dL Magnesium 2.0 (1.6-2.3) mg/dL Total Bilirubin 1.1 (0.2-1.3) mg/dL AST 39 H (14-36) U/L ALT 29 (6-35) U/L Alkaline Phosphatase 82 (38-126) U/L Total Protein 8.0 (6.3-8.2) g/dL Albumin 4.7 (3.5-5.1) g/dL Urine Color Yellow (Yellow) Urine Appearance Clear (Clear) Urine pH 8.0 (5.0-9.0) Ur Specific [place] 1.003 (1.001-1.035) Urine Protein Negative (Negative) mg/dL Urine Glucose (UA) Negative (Negative) mg/dL Urine Ketones Negative (Negative) mg/dL Ur Blood (Man) Negative (Negative) Urine Nitrate Negative (Negative) Urine Bilirubin Negative (Negative) Urine Urobilinogen 0.2 (<2.0) mg/dL Leukocyte Esterase Rfl 2+ H (Negative) SONYA/UL Urine RBC 0-2 (0-2) /hpf Urine WBC 6-10 H (0-3) /hpf Ur Squamous Epith Cells None seen (Few) /hpf Urine Bacteria None seen /hpf Urine Casts 0-2 Influenza A (RT-PCR) Negative (Negative) Influenza B (RT-PCR) Negative (Negative) RSV (RT-PCR) Negative (Negative) SARS-CoV-2 RNA (RT-PCR) Negative (Negative) <Krysta Mcmanus PA-C - Last Filed: 12/28/24 19:35> Imaging Data Attestation: I personally reviewed and interpreted this imaging study as follows: <KATELIN Crowe Last Filed: 12/28/24 19:35> Radiologist's impression: ITS Impressions Abdomen/Pelvis CT 12/28/24 18:39 IMPRESSION: No acute abnormality is noted in the abdomen and pelvis. Hepatic steatosis. Constipation All CT scans at this facility are performed using low dose modulation techniques as appropriate to perform exam including the following: automated exposure control; use of iterative reconstruction technique; adjustment of the mA and/or kV according to patient size (this includes techniques or standardized protocols for targeted exams where dose is matched to indication/reason for exam). <Krysta Mcmanus PA-C - Last Filed: 12/28/24 19:35> Critical Care Time Critical Care Time Critical Care Time: No <Tash Blas PA-C - Last Filed: 12/28/24 19:14> Discharge Plan Discharge Clinical Impression: UTI (urinary tract infection) Qualifiers: Urinary tract infection type: acute cystitis Hematuria presence: without hematuria Qualified Code(s): N30.00 - Acute cystitis without hematuria Fatigue Qualifiers: Fatigue type: unspecified Qualified Code(s): R53.83 - Other fatigue <Tash Blas PA-C - Last Filed: 12/28/24 19:14> Patient Disposition: Home <KATELIN Childress Last Filed: 12/28/24 19:14> Condition: Stable <Tash Blas PA-C - Last Filed: 12/28/24 19:14> Instructions: Antibiotic Form, Urinary Tract Infection in Women (ED), Viral Syndrome (ED) <Tash Blas PA-C - Last Filed: 12/28/24 19:14> Additional Instructions: Take antibiotics as prescribed for urinary tract infection. Stay well hydrated. Zofran as needed for nausea. Follow-up with your primary care doctor for further evaluation and urine culture results. Return to the ED for new or worsening concerns, unable to keep down food or drink, severe pain, persistent fevers, or any other symptoms of concern. <Tash Blas PA-C - Last Filed: 12/28/24 19:14> Patient Language: Yemeni <Tash Blas PA-C - Last Filed: 12/28/24 19:14> Prescriptions: New cephalexin 500 mg capsule 500 mg PO Q12H 7 Days Qty: 14 0RF ondansetron 4 mg tablet,disintegrating 4 mg PO Q8H PRN (Reason: nausea and vomiting) Qty: 15 0RF No Action quetiapine 25 mg tablet 50 mg PO HS Dayvigo 10 mg tablet 10 mg PO QHS Qty: 30 0RF mirabegron 25 mg tablet extended release 24 hr 25 mg PO DAILY Qty: 30 0RF Vitamin C 1,000 mg PO DAILY cetirizine [Zyrtec] 10 mg tablet 10 mg PO DAILY Rx Instructions: take 1 tablet by oral route every day naratriptan 2.5 mg tablet 2.5 mg PO Q4H PRN (Reason: migraine headache) Qty: 30 5RF Rx Instructions: TAKE 1 TABLET BY MOUTH ONCE, MAY REPEAT AFTER 4 HOURS hydrocortisone 1 % cream 1 applic topical QID PRN (Reason: atopic dermatitis ) Qty: 28.4 1RF atorvastatin 20 mg tablet See Rx Instructions .ROUTE .COMPLEX Qty: 90 3RF Dose Instruction: TAKE 1 TABLET BY MOUTH DAILY Rx Instructions: TAKE 1 TABLET BY MOUTH DAILY indapamide 2.5 mg tablet 2.5 mg PO DAILY Qty: 90 1RF Rx Instructions: TAKE 1 TABLET BY MOUTH EVERY DAY IN THE MORNING levothyroxine 88 mcg tablet 88 mcg PO DAILY Qty: 90 1RF Rx Instructions: NO MEDICATION ON THURSDAY potassium chloride 20 mEq tablet extended release See Rx Instructions .ROUTE .COMPLEX Qty: 180 0RF Dose Instruction: TAKE 1 TABLET BY MOUTH TWICE DAILY Rx Instructions: TAKE 1 TABLET BY MOUTH TWICE DAILY <Tash Blas PA-C - Last Filed: 12/28/24 19:14> Follow-up/Referrals: Isidra Roque PA-C [Primary Care Provider, Family Practice] <Tash Blas PA-C - Last Filed: 12/28/24 19:14> Time of Disposition: 19:25 <Tash Blas PA-C - Last Filed: 12/28/24 19:14> 19:25 <Krysta Mcmanus PA-C - Last Filed: 12/28/24 19:35>
[2024-12-28 16:10] LABS: Add Urine Microscopic? YES; Appearance Urine Clear (Clear); Glucose Urine UA Negative (Negative); Leukocyte Esterase Ur 2+ LEU/UL (Negative); Nitrate Urine Negative (Negative); Non Pathogenic Casts 0-2; Specific Grav Ur 1.003 (1.001-1.035)
--- OUTSIDE RECORDS SUMMARY | 2024-12-28 16:42 | XMS_ITS | Clinical Summary ---
Author Organization [facility] [employer] Address [address] [place] [address] Care Team Providers Care Dividend Clerk Name Role Phone Yandel Iqbal MD Primary Care Provider [phone] Source Comments [facility] [employer],non-owned Affiliates and Associated Physician Practices is amultiple site organization consisting of ambulatory clinics and hospital sitesin [place], [place], [place] and [place]. This disclosure is being madepursuant to the Care Everywhere program and may not contain all information available regarding this patient. Last updated 17.[facility] [employer] Social History Tobacco Use Types Packs/Day Years [...] to complete this topic Insurance HEALTH [employer]ARE [facility] [employer] [facility] [employer] Care Teams Dividend Clerk Relationship Specialty Start Date End Date Yandel Iqbal MD [address] [place] [address] PCP - General 05/05/22
--- OUTSIDE RECORDS SUMMARY | 2024-12-28 16:42 | XMS_ITS | Encounter Summary ---
Author Organization [facility] Address [address] [place] [address] Care Team Providers Care Parts Sales Associate Name Role Phone Yandel Iqbal MD Primary Care Provider [phone] Encounter Details Date Type Department Care Team (Late st Contact Info) Description 12/07/2023 Lab Requisition [facility] - DermPath Lab [address] [place] [id number] Tal Aldana MD [address] [place] [address] Social History Tobacco Use Types [...] AM CDT) Case Report Dermatopathology Report Case: [id number] Authorizing Provider: Tal Aldana MD Collected: 12/04/2023 12:00 AM Ordering Location: [facility] - Received: 12/07/2023 01:54 [...] characteristic determined by the Dermatopathology Laboratory at [facility], directed by Dr. Lionel Singh. These tests need not be, and therefore are not, approved by the [place] Food and Drug Administration. The tests are used for clinical purposes. Billing Codes Specimen Charges Stain Charges 11070 60867 53433 1 1 1 12:55 PM CDT DERMATOPATHOLOGY [...] PATHOLOGY/CYTOLOGY ORD ERABLES Final Result DERMATOPATHOLOGY LABORATORY [facility] - Department of Dermatology [facility] Medicine [address] [place] [address], [address] [phone] documented in this encounter Visit Diagnoses Not on filedocumented in this encounter Care Teams Parts Sales Associate Relationship Specialty Start Date End Date Yandel Iqbal MD [address] [place] [address] PCP - General 05/05/22 documented as of this encounter
--- OUTSIDE RECORDS SUMMARY | 2024-12-28 16:43 | XMS_ITS | Encounter Summary ---
Author Organization [facility] Address [address] [place] [address] Care Team Providers Care Front End Wheel Loader Operator Name Role Phone Yandel Iqbal MD Primary Care Provider [phone] Encounter Details Date Type Department Care Team (Late st Contact Info) Description 10/21/2023 Lab Requisition [facility] - DermPath Lab [address] [place] [id number] Tal Aldana MD [address] [place], [place] [id number] Social History Tobacco Use Types Packs/Day Years [...] AM CDT) Case Report Dermatopathology Report Case: [id number] Authorizing Provider: Tal Aldana MD Collected: 10/20/2023 12:00 AM Ordering Location: [facility] - Received: 10/22/2023 06:49 AM DermPath Lab [...] characteristic determined by the Dermatopathology Laboratory at [facility], directed by Dr. Lionel Singh. These tests need not be, and therefore are not, approved by the [place] Food and Drug Administration. The tests are used for clinical purposes. Billing Codes Specimen Charges Stain Charges 41767 1 4:00 PM CDT DERMATOPATHOLOGY LABORATORY Embedded Images 4:00 PM CDT DERMATOPATHOLOGY LABORATORY Pathology/Cytolog y TISSUE SPECIMEN FROM SKIN / Unknown 10/20/2023 10/22/2023 6:49 AM CDT Tal Aldana MD LAB - PATHOLOGY/CYTOLOGY ORD ERABLES Final Result DERMATOPATHOLOGY LABORATORY [facility] - Department of Dermatology [address], [address] [phone] documented in this encounter Visit Diagnoses Not on filedocumented in this encounter Care Teams Front End Wheel Loader Operator Relationship Specialty Start Date End Date Yandel Iqbal MD [address] [place] [address] PCP - General 05/05/22 documented as of this encounter
[2024-12-28 17:43] LABS: Hematocrit 40.4 % (37.0-47.0); Hemoglobin 14.0 g/dL (12.0-15.0); Immature Granulocyte Percent A 0.9 % (0-0.5); Lymphocytes Absolute Auto 1.45 K/mm3 (0.9-3.2); Mean Corpuscular HGB Conc 34.7 g/dl (32-36); Mean Corpuscular Hemoglobin 27.8 pg (26-34); Mean Corpuscular Volume 80.2 fl (80-100); Nucleated Red Blood Cells Absolute Auto 0.000 K/mm3 (0.0-0.012); Nucleated Red Blood Cells Perc 0.0 % (0.0-0.2); Platelet Count Result 155 k/mm3 (150-375); Red Blood Count 5.04 M/mm3 (4.2-5.4); White Blood Count 5.6 K/mm3 (4.5-10.0)
[2024-12-28 18:01] LABS: Alanine Aminotransferase 29 U/L (6-35); Albumin Level 4.7 g/dL (3.5-5.1); Alkaline Phosphatase 82 U/L (38-126); Anion Gap 10 mmol/L (4-12); Aspartate Amino Transferase 39 U/L (14-36); Bilirubin,Total 1.1 mg/dL (0.2-1.3); Blood Urea Nitrogen 11 mg/dL (7-17); Calcium 9.3 mg/dL (8.4-10.2); Carbon Dioxide 26 mmol/L (22-30); Chloride 95 mmol/L (98-107); Estimated CRCL calculation 84 ml/min; Estimated Glomerular Filt Rate > 60; Glucose 88 mg/dL (65-110); Potassium 3.7 mmol/L (3.4-5.0); Sodium 131 mmol/L (137-145); Total Protein 8.0 g/dL (6.3-8.2)
[2024-12-28] MEDS: SODIUM CHLORIDE 0.9% IV 1,000 ML 999 ML IV CONT (18:01)
[2024-12-28 18:19] LABS: Influenza A QL RT-PCR Negative (Negative); Influenza B QL RT-PCR Negative (Negative); RSV RNA, RT-PCR Negative (Negative); SARS-CoV-2 RNA PCR Negative (Negative)
[2024-12-28 18:23] LABS: Magnesium 2.0 mg/dL (1.6-2.3)
[2024-12-28] MEDS: CEPHALEXIN 500 MG CAPSULE PO (19:11)
--- NOTE | 2024-12-28 19:13 | PC.NURSE ---
pt advised to make sure she does not bend her wrist back so her fluids will continue to flow. pt has approx 200 mL left in the bag
[2024-12-28 19:35] VITALS: BP 124/86; PULSE 85; RESP 16; O2SAT 97
== END 2024-12-28 19:51 | disposition home or self-care (01) ==
PROVIDERS: Physician Assistant; Emergency Provider Physician Assistant; PCP Student in an Organized Health Care Education/Training Program
DX: N30.00 Acute cystitis without hematuria (principal); R53.83 Other fatigue; E78.2 Mixed hyperlipidemia; I10 Essential (primary) hypertension; E03.9 Hypothyroidism, unspecified; F43.10 Post-traumatic stress disorder, unspecified; Z87.891 Personal history of nicotine dependence; Z20.822 Contact with and (suspected) exposure to COVID-19
CPT/HCPCS: 36415; 74177; 80053; 81001; 83735; 85025; 87086; 87637; 96360; 99284; A9270; J7030; Q9967

== ENCOUNTER 2025-01-13 11:37 | Outpatient (CLI) | payer OTHER, SELFPAY ==
--- OUTSIDE RECORDS SUMMARY | 2025-01-13 11:40 | XMS_ITS | Encounter Summary ---
Author Organization [facility] Address [address] [place] [address] Care Team Providers Care Patent Chemist Name Role Phone Yandel Iqbal MD Primary Care Provider [phone] Encounter Details Date Type Department Care Team (Late st Contact Info) Description 10/21/2023 Lab Requisition [facility] - DermPath Lab [address] [place] [id number] Tal Aldana MD [address] [place], [place] [id number] Social History Tobacco Use Types Packs/Day Years [...] AM CDT) Case Report Dermatopathology Report Case: [id number] Authorizing Provider: Tal Aldana MD Collected: 10/20/2023 12:00 AM Ordering Location: [facility] Physician [facility] - Received: 10/22/2023 06:49 AM DermPath [...] characteristic determined by the Dermatopathology Laboratory at [facility], directed by Dr. Lionel Singh. These tests need not be, and therefore are not, approved by the [place] Food and Drug Administration. The tests are used for clinical purposes. Billing Codes Specimen Charges Stain Charges 05558 1 4:00 PM CDT DERMATOPATHOLOGY LABORATORY Embedded Images 4:00 PM CDT DERMATOPATHOLOGY LABORATORY Pathology/Cytolog y TISSUE SPECIMEN FROM SKIN / Unknown 10/20/2023 10/22/2023 6:49 AM CDT Tal Aldana MD LAB - PATHOLOGY/CYTOLOGY ORD ERABLES Final Result DERMATOPATHOLOGY LABORATORY [facility] - Department of Dermatology [address], [address] [phone] documented in this encounter Visit Diagnoses Not on filedocumented in this encounter Care Teams Patent Chemist Relationship Specialty Start Date End Date Yandel Iqbal MD [address] [place] [address] PCP - General 05/05/22 documented as of this encounter
--- OUTSIDE RECORDS SUMMARY | 2025-01-13 11:40 | XMS_ITS | Encounter Summary ---
Author Organization [facility] Address [address] [place] [address] Care Team Providers Care Real Estate Executive Assistant Name Role Phone Yandel Iqbal MD Primary Care Provider [phone] Encounter Details Date Type Department Care Team (Late st Contact Info) Description 12/07/2023 Lab Requisition [facility] - DermPath Lab [address] [place] [id number] Tal Aldana MD [address] [place] [address] Social History Tobacco Use Types [...] AM CDT) Case Report Dermatopathology Report Case: [id number] Authorizing Provider: Tal Aldana MD Collected: 12/04/2023 12:00 AM Ordering Location: [facility] - Received: 12/07/2023 01:54 PM [...] characteristic determined by the Dermatopathology Laboratory at [facility], directed by Dr. Lionel Singh. These tests need not be, and therefore are not, approved by the [place] Food and Drug Administration. The tests are used for clinical purposes. Billing Codes Specimen Charges Stain Charges 31604 54222 62439 1 1 1 12:55 PM CDT DERMATOPATHOLOGY [...] PATHOLOGY/CYTOLOGY ORD ERABLES Final Result DERMATOPATHOLOGY LABORATORY [facility] - Department of Dermatology [facility] Medicine [address] [place] [address], [address] [phone] documented in this encounter Visit Diagnoses Not on filedocumented in this encounter Care Teams Real Estate Executive Assistant Relationship Specialty Start Date End Date Yandel Iqbal MD [address] [place] [address] PCP - General 05/05/22 documented as of this encounter
--- OUTSIDE RECORDS SUMMARY | 2025-01-13 11:40 | XMS_ITS | Clinical Summary ---
Author Organization [facility] [employer] Address [address] [facility] [place] [address] Care Team Providers Care Bellows Charger Assembler Name Role Phone Yandel Iqbal MD Primary Care Provider [phone] Source Comments [facility] [employer],non-owned Affiliates and Associated Physician Practices is amultiple site organization consisting of ambulatory clinics and hospital sitesin [place], [place], [place] and [place]. This disclosure is being madepursuant to the Care Everywhere program and may not contain all information available regarding this patient. Last updated 17.[facility] [employer] Social History Tobacco Use Types Packs/Day Years [...] 10/26/1982 DTAP/TDAP/TD VACCINES (1 - Tdap) 10/31/1983 Cervical Cancer Screening 1985 PAP SMEAR 1985 PAP with HPV 1994 PNEUMOCOCCAL VACCINE 50+ (1 of 1 - PCV) 2014 ZOSTER VACCINE (1 of 2) 2014 DEPRESSION SCREENING 02/17/2024 COVID-19 VACCINE ( - 2024-2 6 season) 2024 INFLUENZA VACCINE (#1) 2024 Respiratory [...] to complete this topic Insurance HEALTH CARE [facility] [place] [address] [address] HEALTH CARE Care Teams Bellows Charger Assembler Relationship Specialty Start Date End Date Yandel Iqbal MD [address] [place] [address] PCP - General 05/05/22
--- OUTSIDE RECORDS SUMMARY | 2025-01-13 11:40 | XMS_ITS | Patient Health Record ---
Author Organization [facility] [employer] [facility] Address [address] [place] [address] Care Team Providers Care Field Seismologist Name Role Phone America Oropeza MD Primary Care Provider Angelina Montez Unavailable [phone] Allergies Allergen (clinical drug ingredient) Drug/Non Drug [...] Not-Taking INDAPAMIDE 2.5 MG TABS *Reorder from [employer] for eRx and Interaction Alerts* 05/27/2023 Active Potassium Chloride ER 20 MEQ Tablet Extended Release Oral 05/27/2023 Active Atorvastatin Calcium 20 MG Tablet Oral 05/27/2023 Active Immunizations Vaccine Route Administration Date Status Comme nts Novel [id number], preservative free Unknown 11/20/2019 Administered Pfizer Biontech [...] Status W/U Status Risk Notes Problem Hypothyroidism (35877213) Hypothyroidism, unspecified (E03.9) 4 Active confirmed Problem Mild recurrent major depression (73011110) Major depressive disorder, recurrent, mild (F33.0) 4 Active confirmed Problem Generalized anxiety disorder (21461231) Generalized anxiety disorder (F41.1) 4 Active confirmed Problem Primary insomnia (6826231) Primary insomnia (F51.01) 4 Active confirmed Problem Recurrent major depression (16504041) Depression, major, recurrent, in remission (F33.40) Active confirmed Vital Signs Heart Rate 70 /min 10/04/2024 Height-cm 172.72 cm 10/04/2024 Blood pressure diastolic 78 mm Hg 10/04/2024 Weight-kg 75.02 kg 10/04/2024 Height 68.00 in 10/04/2024 Blood pressure systolic 120 mm Hg 10/04/2024 Weight 165.4 lbs 10/04/2024 BMI 25.15 kg/m2 10/04/2024 Encounters Encounter Location Date Provider Diagnosis [facility] [employer] [facility] [address] [address] 06/02/2024 Angelina Singh Major depressive disorder, recurrent, mild F33.0 ; Primary insomnia F51.01 ; Generalized anxiety disorder F41.1 ; Encounter for screening for cardiovascular disorders Z13.6 and Encounter for screening for depression Z13.31 [facility] [address] [address] 10/04/2024 Angelina Singh Primary insomnia F51.01 ; Depression, major, recurrent, in remission F33.40 and Generalized anxiety disorder F41.1 [place] [address] [address] 01/26/2024 Angelina Singh Major depressive disorder, recurrent, mild F33.0 and Primary insomnia F51.01 [facility] [address] [address] 05/26/2024 Angelina Singh Primary insomnia F51.01 [place] [address] [address] 06/29/2024 Angelina Singh [place] [address] [address] 07/01/2024 Angelina Singh Major depressive disorder, recurrent, mild F33.0 [place] [address] [address] 09/13/2024 Angelina Singh Primary insomnia F51.01 [place] [address] [address] 12/19/2024 Angelina Singh [place] [address] [address] 03/23/2024 Angelina Singh Assessments Encounter Date Diagnosis [...] Date Coverage End Date Umr [address] [address] [place] [address] [phone] [id number] YVON PHELAN Spouse - patient is the spouse of the insured Medical (General) History Medical History History ICD Code Problems: Generalized anxiety disorder Hyponatremia Hypothyroidism Long-term drug therapy Mild recurrent major depression Primary insomnia , Surgical History Surgery Date(Month/Year) Unlisted procedure breast () Hysterectomy/revise vagina (08342) Endometr ablate thermal (61178) Hysterectomy (83473) 05/02/2016 Endometrial ablation (32671) 07/05/2006 Breast surgery (39560) 09/05/2015
[2025-01-13 12:10] LABS: Hematocrit 45.4 % (37.0-47.0); Hemoglobin 15.3 g/dL (12.0-15.0); Immature Granulocyte Percent A 0.7 % (0-0.5); Lymphocytes Absolute Auto 1.24 K/mm3 (0.9-3.2); Mean Corpuscular HGB Conc 33.7 g/dl (32-36); Mean Corpuscular Hemoglobin 27.5 pg (26-34); Mean Corpuscular Volume 81.7 fl (80-100); Nucleated Red Blood Cells Absolute Auto 0.000 K/mm3 (0.0-0.012); Nucleated Red Blood Cells Perc 0.0 % (0.0-0.2); Platelet Count Result 162 k/mm3 (150-375); Red Blood Count 5.56 M/mm3 (4.2-5.4); White Blood Count 4.5 K/mm3 (4.5-10.0)
[2025-01-13 12:31] LABS: Alanine Aminotransferase 23 U/L (6-35); Albumin Level 4.7 g/dL (3.5-5.1); Alkaline Phosphatase 81 U/L (38-126); Anion Gap 5 mmol/L (4-12); Aspartate Amino Transferase 34 U/L (14-36); Bilirubin,Total 0.9 mg/dL (0.2-1.3); Blood Urea Nitrogen 9 mg/dL (7-17); Calcium 9.7 mg/dL (8.4-10.2); Carbon Dioxide 32 mmol/L (22-30); Chloride 98 mmol/L (98-107); Cholesterol 219 mg/dL (0-200); Estimated Glomerular Filt Rate > 60; Glucose 85 mg/dL (65-110); HDL Direct 55 mg/dL; Potassium 3.6 mmol/L (3.4-5.0); Sodium 135 mmol/L (137-145); Total Protein 7.9 g/dL (6.3-8.2); Triglycerides 96 mg/dL (<150)
[2025-01-13 12:49] LABS: Free T4 Free Thyroxine 1.06 ng/dL (0.78-2.19)
[2025-01-13 13:07] LABS: Thyroid Stimulating Hormone 5.920 uIU/mL (0.465-4.680)
== END 2025-01-13 11:38 | disposition home or self-care (01) ==
PROVIDERS: PCP Student in an Organized Health Care Education/Training Program; Visit Provider Student in an Organized Health Care Education/Training Program
DX: E78.2 Mixed hyperlipidemia (principal); I10 Essential (primary) hypertension; E03.9 Hypothyroidism, unspecified; R94.6 Abnormal results of thyroid function studies; R53.83 Other fatigue; E55.9 Vitamin D deficiency, unspecified
CPT/HCPCS: 36415; 80053; 80061; 82306; 84439; 84443; 85025

== ENCOUNTER 2025-01-27 15:07 | Outpatient (CLI) | payer OTHER, SELFPAY | END 2025-01-27 15:08 | disposition home or self-care (01) | PROVIDERS: Visit Provider Student in an Organized Health Care Education/Training Program | DX: E03.9 Hypothyroidism, unspecified (principal) | CPT/HCPCS: 84146 ==